=== PATIENT | female | born 1995 | race Caucasian/White ===

== ENCOUNTER 2018-11-03 15:26 | Emergency (ER) | payer MEDICAID, SELFPAY ==
[2018-11-03 15:27] VITALS: BP 126/79; PULSE 96; RESP 16; TEMP 36.6; O2SAT 98; BMI 35.6
--- NOTE | 2018-11-03 15:37 | NURSING ---
NO OLD EKGS
--- NOTE | 2018-11-03 15:42 | EKG12_ITS ---
Test Reason : CP Blood Pressure : / mmHG Vent. Rate : 085 BPM Atrial Rate : 085 BPM P-R Int : 110 ms QRS Dur : 078 ms QT Int : 360 ms P-R-T Axes : 079 076 068 degrees QTc Int : 428 ms Sinus rhythm with short NM Otherwise normal ECG Confirmed by BARRIE FARMER, FILIBERTO ([id number]), food editor CLAUDIA BUTLER ([id number] on 11/06/2018 12:49:59 PM Referred By: TIARA Confirmed By:FILIBERTO SOOD MD
--- NOTE | 2018-11-03 15:47 | ED.DCSUM_ITS ---
- ER Visit Summary Date of Service: 11/03/18 Chief Complaint: Chest pain and back pain History of Present Illness: The patient is a 23 F who presents with chief complaint of back pain since yesterday and chest pain today. Patient states she was having mid and lower back pain yesterday. She had 2 episodes of dizziness that resolved with rest. Patient thought she might have low blood sugar and ate a cookie. She then slipped on the floor at work and fell, now with worsening back pain. This morning she noted chest pain in the mid chest. No radiation. Pain is worse with breathing. No fever, cough, congestion, abdominal pain, nausea vomiting, diarrhea, urinary symptoms. No weakness in the arms or legs. She denies any medical problems. Is not on any medications. Occasional alcohol use. No tobacco or drugs. No history of IV drug use. Physical Examination: Vital signs: afebrile, hemodynamically stable, no hypoxia on room air General: well nourished, well developed, in no distress, ambulates without difficulty Skin: warm, dry, facial rosacea, no pallor HEENT: normocephalic and atraumatic; PERRL, EOMI, moist mucous membranes Cardiovascular: regular rate and rhythm without murmurs, no peripheral edema, 2+ pulses all distal extremities Respiratory: No increased work of breathing, lungs are clear to auscultation bilaterally, no rales, rhonchi or wheezing Abdominal: Abdomen is soft, nontender with normoactive bowel sounds, no guarding or rebound, no masses MSK: Moves all extremities, no deformities, normal strength, no c-spine tenderness, midline tenderness to the thoracic and lumbar spine diffusely without any deformities, step-offs, erythema, rash, fluctuance. Full range of motion of the back. Neuro: Awake and alert, oriented ?4. No facial droop, sensation and motor function intact and symmetric Test Results: Abnormal Lab Results 11/03/18 11/03/18 11/03/18 16:00 16:00 16:00 WBC 7.3 RBC 5.45 H Hgb 14.7 Hct 44.1 MCV 80.9 L MCH 27.0 MCHC 33.3 RDW 13.3 RDW Differential 38.9 Plt Count 298 MPV 9.7 Immature Gran % (Auto) 0.300 Neut % (Auto) 58.6 Lymph % (Auto) 26.3 Milam % (Auto) 9.4 Eos % (Auto) 5.0 Baso % (Auto) 0.4 Absolute Neuts (auto) 4.3 Absolute Lymphs (auto) 1.93 Total Counted Not Reportable D-Dimer Quant (PE/DVT) 0.34 Sodium 141 Potassium 4.0 Chloride 106 Carbon Dioxide 27.0 Anion Gap 8 BUN 8 Creatinine 0.71 Estim Creat Clear Calc 116.35 Est GFR (MDRD) Af Amer 131 Est GFR (MDRD) Non-Af 109 BUN/Creatinine Ratio 11.2 Glucose 87 Calcium 8.5 Magnesium 1.8 Total Bilirubin 0.40 Direct Bilirubin 0.11 AST 5 L ALT 26 Alkaline Phosphatase 135 H Troponin I < 0.015 Total Protein 7.5 Albumin 3.6 Globulin 3.9 Lipase 181 TSH 1.01 Urine Color Urine Clarity Urine pH Ur Specific [place] Urine Protein Urine Glucose (UA) Urine Ketones Urine Occult Blood Urine Nitrite Urine Bilirubin Urine Urobilinogen Ur Leukocyte Esterase Urine RBC Urine WBC Ur Squamous Epith Cells Urine Bacteria Urine Mucus Urine Test 11/03/18 11/03/18 16:05 16:05 WBC RBC Hgb Hct MCV MCH MCHC RDW RDW Differential Plt Count MPV Immature Gran % (Auto) Neut % (Auto) Lymph % (Auto) Mil[place] % (Auto) Eos % (Auto) Baso % (Auto) Absolute Neuts (auto) Absolute Lymphs (auto) Total Counted D-Dimer Quant (PE/DVT) Sodium Potassium Chloride Carbon Dioxide Anion Gap BUN Creatinine Estim Creat Clear Calc Est GFR (MDRD) Af Amer Est GFR (MDRD) Non-Af BUN/Creatinine Ratio Glucose Calcium Magnesium Total Bilirubin Direct Bilirubin AST ALT Alkaline Phosphatase Troponin I Total Protein Albumin Globulin Lipase TSH Urine Color Yellow Urine Clarity Sl. Cloudy Urine pH 6.0 Ur Specific [place] 1.015 Urine Protein Negative Urine Glucose (UA) Normal Urine Ketones Negative Urine Occult Blood Negative Urine Nitrite Negative Urine Bilirubin Negative Urine Urobilinogen Normal Ur Leukocyte Esterase Negative Urine RBC 0 SEEN Urine WBC 0 SEEN Ur Squamous Epith Cells 5-10 SEEN Urine Bacteria 0 SEEN Urine Mucus 0 SEEN Urine Test Negative Clinical Impression(s) from Imaging Studies Chest X-Ray 11/03/18 16:15 IMPRESSION: Normal x-ray examination of the chest. Electronically Signed: Emely Mills MD at 17:09 EST Tel , Service support , Lumbar Spine X-Ray 11/03/18 16:15 IMPRESSION: Minimal degenerative change. There is straightening of the physiologic lordosis which can be associated with muscle spasm or pain. Electronically Signed: Emely Mills MD at 17:09 EST Tel , Service support , Thoracic Spine X-Ray 11/03/18 16:15 IMPRESSION: Normal x-ray examination of the thoracic spine. Electronically Signed: Elaine Ventura, at 16:51 EST Tel , Service support , Medications Given Discontinued Medications Sodium Chloride () 1,000 mls @ 1,000 mls/hr IV .Q1H ONE Stop: 11/03/18 16:41 Last Admin: 11/03/18 16:07 Dose: 1,000 mls/hr Ketorolac Tromethamine (Toradol) 15 mg IV X1 ONE Stop: 11/03/18 15:44 Last Admin: 11/03/18 16:07 Dose: 15 mg Emergency Department Course and Treatment: Patient presents for evaluation of diffuse back pain with worsening after she slipped and fell yesterday. She is also having chest pain that is pleuritic in nature. She had 2 episodes of dizziness yesterday but they were unrelated to the fall. Due to patient's constellation of symptoms, workup was performed. EKG showed a sinus rhythm with no ischemia or ectopy. Troponin negative. D-dimer was performed given the back and chest pain with worsening with breathing. D-dimer was within normal limits. Patient had no electrolyte abnormalities, no leukocytosis or anemia, urine was negative for infection, TSH was within normal range. negative. Patient received IV fluids and Toradol with improvement of her pain. X-rays of the chest, lumbar spine and thoracic spine were remarkable only for straightening of the lumbar lordosis, which was interpreted as possibly due to muscle spasm. Patient did state her pain worsened after the fall. She has no focal neuro deficits, no saddle anesthesia, no bowel or bladder complaints, and there is no red flag symptoms concerning for cauda equina, epidural abscess or hematoma. Patient is well-appearing. She was given a prescription for naproxen and Flexeril for muscle spasm. She is to follow-up with her primary care provider if her symptoms continue and return to emergency department if any worsening or changes. Patient agreed with this plan was discharged home. Treatment Plan: [] Disposition: [] Impression: nonspecific back and chest pain This note was generated with [employer] dictation software. It may contain incorrect words, spelling, and punctuation that were not noted in review of the chart prior to signing ED Disposition - Plan for ED Patient: Disposition: Home or Assisted Living Chief Complaint: Chest Pain Instructions: ED Spasm Back No Trauma, ED Sprain Strain Lumbar, ED Chest Pain Atypical Unkn Cause Prescriptions: RX: Naproxen [Naprosyn] 500 mg PO BID PRN #20 tab Cyclobenzaprine [Flexeril] 5 mg PO TID PRN #15 tab PRN Reason: Muscle Spasm Referrals: Shikha Brown MD [Primary Care Provider] -
[2018-11-03 16:05] VITALS: O2SAT 99
[2018-11-03] MEDS: 0.9% Normal Saline 1,000 ML 1000 ML IV (16:07)
[2018-11-03] MEDS: Ketorolac 15 MG/ML Vial IV (16:07)
--- NOTE | 2018-11-03 16:15 | RAD_ITS ---
STUDY: X-RAY CHEST REASON FOR EXAM: Female, 23 years old. Status post fall TECHNIQUE: PA and lateral views of the chest. COMPARISON: November 28, 2017 chest x-ray FINDINGS: The lungs are clear and expanded. There is no demonstrated pleural abnormality. Normal size heart. Normal mediastinum and cornel. Normal visualized pulmonary arteries. Normal visualized aortic arch and descending thoracic aorta. Normal visualized thoracic spine. Normal visualized ribs, clavicles, and shoulders. There is no demonstrated abnormality of the visualized soft tissue structures of the upper abdomen. RAD/Chest PA and Lateral IMPRESSION: Normal x-ray examination of the chest. Electronically Signed: Emely Mills MD at 17:09 EST Tel , Service support ,
--- NOTE | 2018-11-03 16:15 | RAD_ITS ---
STUDY: X-RAY - THORACIC SPINE REASON FOR EXAM: Female, 23 years old. TECHNIQUE: view(s) of the thoracic spine were obtained. COMPARISON: None. FINDINGS: Normal kyphosis of the thoracic spine. There is no substantial scoliosis. Normal thoracic vertebrae and endplates. Normal disc space heights. The soft tissue structures are unremarkable. RAD/Thoracic Spine 3 Views IMPRESSION: Normal x-ray examination of the thoracic spine. Electronically Signed: Elaine Ventura, at 16:51 EST Tel , Service support ,
--- NOTE | 2018-11-03 16:15 | RAD_ITS ---
STUDY: X-RAY - LUMBAR SPINE REASON FOR EXAM: Female, 23 years old. Status post fall TECHNIQUE: 3 view(s) of the lumbar spine were obtained. COMPARISON: None FINDINGS: There is straightening of the normal lumbar lordosis. There is no substantial scoliosis. There is a normal alignment of the vertebrae. Normal vertebral bodies and endplates. There is mild narrowing at L5-S1. The soft tissue structures are unremarkable. RAD/Lumbar Spine 2 or 3 Views IMPRESSION: Minimal degenerative change. There is straightening of the physiologic lordosis which can be associated with muscle spasm or pain. Electronically Signed: Emely Mills MD at 17:09 EST Tel , Service support ,
[2018-11-03 16:16] LABS: Bacteria 0 SEEN /hpf (None Seen); Mucous, Urine 0 SEEN /hpf (<or=2+); Red Blood Cells-Urine 0 SEEN /hpf (0-5); White Blood Cells 0 SEEN /hpf (0-5)
[2018-11-03 16:23] LABS: Color, Urine Yellow (Yellow); Glucose, Dipstick Normal (Normal); Ketone-Dipstick Negative (Negative); Leukocyte Esterase-Dipstick Negative /ul (Negative); Nitrite-Dipstick Negative (Negative); Occult Blood-Urine Negative /ul (Negative); Protein-Dipstick Negative (Negative); Specific Gravity, Urine 1.015 (1.002-1.030); Urine Bilirubin Dipstick Negative (Negative); Urine Clarity Sl. Cloudy (Clear); Urine Urobilinogen Normal (Normal)
[2018-11-03 16:28] LABS: Internal QC Validated? YES +Cl - CLEAR BKGD; Pregnancy, Urine Negative Negative
[2018-11-03 16:34] LABS: Absolute Lymphocyte Count 1.93 X10^3/ul (0.83-4.51); Absolute Neutrophil Count 4.3 X10^3/uL (2.0-7.7); Basophil# 0.03 X10^3/uL; Basophil% 0.4 % (0-1); Eosinophil# 0.37 X10^3/uL; Hematocrit 44.1 % (37-47); Hemoglobin 14.7 g/dl (12.0-15.0); Lymphocyte # 1.93 X10^3/ul (4.0); Lymphocyte % 26.3 % (19-41); Mean Corp Hgb Conc 33.3 g/gl (32-36); Mean Corpuscular Volume 80.9 fL (81-99); Mean Platelet Vol. 9.7 fl (6.2-12.0); Monocyte# 0.69 X10^3/uL; Monocyte% 9.4 % (0-10); Neutrophil # 4.29 X10^3/uL (2.7-7.7); Neutrophil % 58.6 % (47-70); Platelet Count 298 K/mm3 (150-450); RBC Distribution Width CV 13.3 % (11.6-14.6); RBC Distribution Width SD 38.9 fl (35.1-43.9); Red Blood Count 5.45 M/mm3 (4.2-5.4); White Blood Count 7.3 K/mm3 (4.4-11.0)
[2018-11-03 16:37] LABS: POSITIVE COUNT NO; POSITIVE DIFFERENTIAL NO; POSITIVE MORPHOLOGY NO
[2018-11-03 16:37] LABS: Squamous Epithelial Cells - UA 5-10 SEEN /hpf (5-10)
[2018-11-03 16:41] LABS: AST(SGOT) 5 U/L (15-37); Alanine Aminotransfer ALT/SGPT 26 U/L (13-56); Albumin, Serum 3.6 g/dL (3.2-5.0); Alkaline Phosphatase 135 U/L (45-117); Anion Gap 8 (5-15); BUN 8 mg/dL (7-18); BUN/Creat Ratio 11.2 RATIO (10-20); Bilirubin, Direct 0.11 mg/dL (0.00-0.30); Calcium,Total 8.5 mg/dL (8.5-10.1); Chloride 106 mmol/L (98-107); Creatinine, Serum 0.71 mg/dL (0.55-1.02); EST Glomerular Filtration Rate 109 mL/min (>60); Est Glom Filt Rate - Afr Amer 131 mL/min (>60); Estimated Creatinine Clearance 116.35 ml/min; Globulin 3.9 g/dL (2.2-4.2); Glucose 87 mg/dL (74-106); Lipase 181 U/L (73-393); Magnesium 1.8 mg/dL (1.6-2.6); Protein, Total 7.5 g/dL (6.4-8.2); Sodium Level 141 mmol/L (136-145); Thyroid Stim Hormone (TSH) 1.01 uIU/mL (0.358-3.74)
[2018-11-03 16:47] LABS: D-Dimer Quantitative (DVT/PE) 0.34 FEU/ug/m (0.27-0.49)
[2018-11-03 17:26] VITALS: BP 106/58; PULSE 73; RESP 12; O2SAT 98
--- NOTE | 2018-11-03 17:44 | ED.DEP ---
ED Disposition - Plan for ED Patient: Disposition: Home or Assisted Living Chief Complaint: Chest Pain Instructions: ED Spasm Back No Trauma, ED Sprain Strain Lumbar, ED Chest Pain Atypical Unkn Cause Prescriptions: Naproxen [Naprosyn] 500 mg PO BID PRN #20 tab Cyclobenzaprine [Flexeril] 5 mg PO TID PRN #15 tab PRN Reason: Muscle Spasm Referrals: Shikha Brown MD [Primary Care Provider] -
[2018-11-03 18:03] VITALS: PULSE 76; RESP 14; O2SAT 99
== END 2018-11-03 18:03 | disposition home or self-care (01) ==
PROVIDERS: Emergency Provider Emergency Medicine; Family Provider Internal Medicine; PCP Internal Medicine
DX: R07.9 Chest pain, unspecified (principal); M54.9 Dorsalgia, unspecified
CPT/HCPCS: 71046; 72070; 72072; 72100; 80048; 80076; 81001; 81025; 83690; 83735; 84443; 84484; 85025; 85379; 93005; 96361; 96374; 99284; J7030; A4216

== ENCOUNTER 2020-04-07 15:50 | Emergency (ER) | payer MEDICAID, SELFPAY ==
[2020-04-07 15:52] VITALS: BP 133/76; PULSE 73; RESP 18; TEMP 36.6; O2SAT 98; BMI 32.3
--- NOTE | 2020-04-07 16:52 | ED.VISSUMM ---
- ER Visit Summary Date of Service: 04/07/20 Chief Complaint: Abdominal pain and rectal bleeding History of Present Illness: The patient is a 25 F who presents with abdominal pain that has been constant for the past month. Patient states that her abdominal pain is been waxing and waning over the past month. Patient describes it as aching but sharp at times. Patient states her pain is over the epigastric area as well as over the suprapubic area. Patient admits to nausea but denies any vomiting. Patient also noted some blood in her stools today. Patient states it was red and orange blood. Patient denies any pain with her bowel movements. Patient denies any urinary complaints. Physical Examination: Vital signs are stable. Patient is afebrile. Patient is in no acute distress. Oral mucosa is pink and moist. Neck is supple. Trachea is midline. There is no JVD. Heart was regular rate and rhythm. Lungs are clear and equal bilaterally. Abdomen is soft. Bowel sounds are normal. There is some mild suprapubic and right lower tenderness. There is no rebound or guarding noted. Rovsing sign was negative. Cranial nerves II through XII are intact. There are no focal motor or sensory deficits noted. Remedies are intact. There is no calf tenderness or edema. Test Results: CBC and comprehensive metabolic profile were within normal limits. Urinalysis was normal. Serum hCG was negative. Emergency Department Course and Treatment: Patient was advised of her findings. Patient was instructed to continue to monitor her stools for further bleeding. Patient was instructed on signs and symptoms which should prompt return to the emergency department. Patient was instructed to follow-up with her primary care physician in 5 to 7 days. Patient was advised that she may be referred for endoscopy to a western philosophy professor or surgeon. Patient understood and was agreeable with the plan. All questions were answered. Disposition: Discharge home Impression: Rectal bleeding This note was generated with [employer] dictation software. It may contain incorrect words, spelling, and punctuation that were not noted in review of the chart prior to signing ED Disposition - Plan for ED Patient: Disposition: Home or Assisted Living Diagnosis: Rectal bleeding Instructions: ED Hematochezia Stable Referrals: Shikha Brown MD [STAFF PHYSICIAN] - 3-5 Days
[2020-04-07] MEDS: Ondansetron 4 MG/2 ML Vial IV (17:01)
[2020-04-07] MEDS: 0.9% Normal Saline 1,000 ML 1000 ML IV (17:01)
[2020-04-07 17:13] LABS: Bacteria 0 SEEN /hpf (None Seen); Mucous, Urine 0 SEEN /hpf (<or=2+); Red Blood Cells-Urine 0 SEEN /hpf (0-5); White Blood Cells 0 SEEN /hpf (0-5)
[2020-04-07 17:20] LABS: Absolute Lymphocyte Count 2.03 X10^3/uL (0.83-4.51); Absolute Neutrophil Count 4.2 X10^3/uL (2.0-7.7); Basophil# 0.06 X10^3/uL; Basophil% 0.8 % (0-1); Eosinophil# 0.42 X10^3/uL; Eosinophils% 5.7 % (0-5); Hematocrit 43.8 % (37-47); Hemoglobin 14.2 g/dL (12.0-15.0); Lymphocyte # 2.03 X10^3/ul (4.0); Lymphocyte % 27.7 % (19-41); Mean Corp Hgb Conc 32.4 g/dL (32-36); Mean Corpuscular Hgb 27.8 pg (27.0-32.0); Mean Corpuscular Volume 85.7 fL (81-99); Mean Platelet Vol. 10.8 fl (6.2-12.0); Monocyte# 0.61 X10^3/uL; Monocyte% 8.3 % (0-10); NRBC Flagged by Analyzer 0 % (0-5); Neutrophil # 4.18 X10^3/uL (2.7-7.7); Platelet Count 295 K/mm3 (150-450); RBC Distribution Width CV 13.2 % (11.6-14.6); RBC Distribution Width SD 40.6 fl (35.1-43.9); Red Blood Count 5.11 M/mm3 (4.2-5.4); White Blood Count 7.3 K/mm3 (4.4-11.0)
[2020-04-07 17:33] LABS: ALB/GLOB Ratio 0.9 RATIO (0.9-2.4); AST(SGOT) 7 U/L (15-37); Alanine Aminotransfer ALT/SGPT 27 U/L (13-56); Albumin, Serum 3.4 g/dL (3.2-5.0); Alkaline Phosphatase 110 U/L (45-117); Anion Gap 7 (5-15); BUN 9 mg/dL (7-18); BUN/Creat Ratio 13.9 RATIO (10-20); Calcium,Total 8.9 mg/dL (8.5-10.1); Chloride 109 mmol/L (98-107); Creatinine, Serum 0.65 mg/dL (0.55-1.02); EST Glomerular Filtration Rate 120 mL/min (>60); Est Glom Filt Rate - Afr Amer 145 mL/min (>60); Estimated Creatinine Clearance 124.94 ml/min; Globulin 3.6 g/dL (2.2-4.2); Glucose 90 mg/dL (74-106); Lipase 108 U/L (73-393); Potassium 3.9 mmol/L (3.5-5.1); Sodium Level 140 mmol/L (136-145)
[2020-04-07 17:38] LABS: Color, Urine Yellow (Yellow); Glucose, Dipstick Normal (Normal); Ketone-Dipstick Negative (Negative); Leukocyte Esterase-Dipstick Negative /ul (Negative); Nitrite-Dipstick Negative (Negative); Occult Blood-Urine Negative /ul (Negative); Protein-Dipstick Negative (Negative); Specific Gravity, Urine 1.015 (1.002-1.030); Urine Bilirubin Dipstick Negative (Negative); Urine Clarity Sl. Cloudy (Clear); Urine Urobilinogen Normal (Normal)
[2020-04-07 17:47] LABS: Amorphous Sediment 1+ PHOS; Squamous Epithelial Cells - UA 0-5 SEEN /hpf (5-10)
[2020-04-07 18:25] LABS: Internal QC Validated? YES +Cl - CLEAR BKGD; Pregnancy, Serum, hCG Quali. NEGATIVE Negative
[2020-04-07 19:22] VITALS: PULSE 57; RESP 18; O2SAT 100
== END 2020-04-07 19:25 | disposition home or self-care (01) ==
PROVIDERS: Emergency Provider Emergency Medicine; PCP Internal Medicine
DX: K62.5 Hemorrhage of anus and rectum (principal)
CPT/HCPCS: 80053; 81001; 83690; 84703; 85025; 96361; 96374; 99283; J7030; J2405

== ENCOUNTER 2020-05-14 07:00 | Emergency (ER) | payer MEDICAID, SELFPAY ==
[2020-05-14 07:01] VITALS: BP 117/71; PULSE 78; RESP 16; TEMP 39.9; O2SAT 98; BMI 33.8
[2020-05-14 07:28] VITALS: TEMP 36.8
--- NOTE | 2020-05-14 07:29 | ED.DCSUM_ITS ---
History of Present Illness Chief Complaint: Ear Problem Informant: Patient Onset: Yesterday Context: Gradual Onset Timing: Intermittent Narrative: Patient is a 25-year-old female with history of anxiety presenting with ringing and feeling like there is a sound of water in her right ear. She states intermittently she gets a sharp pain in her right ear. She states that is mild. She currently denies any ear pain. Patient states is now more irritating and giving her headache. She denies any difficulty swallowing nasal congestion. She took Tylenol last night. Her symptoms started yesterday. Patient is currently on her. She is not concerned for . She denies any other complaints at this time. She never had anything like this before. She denies any change in her hearing. Past Medical History - Allergies and Home Meds Allergies/Adverse Reactions: Allergies adhesive tape Allergy (Verified 05/14/20 07:07) Rash tomato Allergy (Verified 04/07/20 15:55) Swelling venom-honey bee [bee venom (honey bee)] Allergy (Verified 04/07/20 15:55) Hives Primary Care Physician: Alexandra Stoddard MD [Primary Care Provider] - Past Medical History: - - anxiety Surgical History: noncontributory Smoking Status: Former smoker Review of Systems General: Denies: Chills, Fever, Sweats Eyes: Denies: Visual changes - bilaterally, Diplopia ENT: Reports: Right ear pain. Denies: Rhinorrhea, Sore throat Cardiovascular: Denies: Chest pain, Palpitations Respiratory: Denies: Dyspnea, Cough, Dyspnea on exertion Gastrointestinal: Denies: Abdominal pain, Nausea, Vomiting, Diarrhea, Melena, Hematochezia Genitourinary: Denies: Dysuria, Hematuria, Frequency Musculoskeletal: Denies: Back pain, Extremity Pain Skin: Denies: Rash, Wounds Neurological: Reports: Headache. Denies: Weakness, Numbness Physical Exam Vital Signs/Narrative: Vital Signs Temp Pulse Resp BP Pulse Ox 05/14/20 07:28 98.2 F 05/14/20 07:01 103.9 F H 78 16 117/71 98 Inital Vital Signs reviewed: Yes General: Well nourished, Well developed, No Acute Distress Head: Normocephalic, Atraumatic Eyes: Perrl, EOMI ENT: Moist mucous membranes, No rhinorrhea, TM's clear, - - Left TM is normal. Right TM does not of any erythema or significant air-fluid level but there is some retraction of the membrane. Mastoid tenderness. External ear canals are normal.. Negative for: Nasal congestion, Sinus tenderness Neck: Supple, Nontender, No lymphadenopathy, - - No nuchal rigidity, normal range of motion Cardiovascular: Regular rate, Regular rhythm, No murmurs Respiratory: No distress, CTA bilaterally, Chest nontender Abdomen: Soft, Nontender, Nondistended, Normal bowel sounds Back: Nontender, Normal Inspection Extremities: Nontender, No edema Skin: Normal color, No rash Neurological: Alert, Oriented x3, Cranial nerves II-XII grossly intact, Normal Strength, Normal Sensation Psychological: Normal affect, Normal Mood Diagnostic/Tx/Re-eval - Medical Decision Making Patient is evaluated for intermittent pain as well as ringing/fluid sensation in her right ear. Initial triage note had fever documented of 103 however patient not have a corresponding tachycardia and did not feel febrile to me. She also did not feel like she personally had a fever. Repeat temperature is normal. Patient did not have any antipyretics prior to arrival. I suspect this temperature was incorrect. Likely patient has some eustachian tube dysfunction. She will be started on Flonase as well as Zyrtec. She be given a [id number] course of antibiotics if she has worsening ear pain or does develop fever. Patient is counseled on signs and symptoms requiring return to the emergency room. Patient verbalizes agreement and understand this plan. Patient discharged home in stable and improved condition. ED Disposition - Plan for ED Patient: Disposition: Home or Assisted Living Diagnosis: Eustachian tube dysfunction Prescriptions: Amox/Clavulanate Tablet [Augmentin Tablet] 875 mg PO Q12H #20 tab Transmission Status: Pending to [id number] Fluticasone 0.05% [Flonase Nasal [place]] 1 spray NASAL BID 14 Days #1 bottle Transmission Status: Pending to [id number] Cetirizine HCl [Zyrtec] 10 mg PO DAILY #14 cap Transmission Status: Pending to [id number] Referrals: Alexandra Stoddard MD [Primary Care Provider] - Robbin Francisco MD [STAFF PHYSICIAN] - Additional Instructions: I suspect you have increased pressure behind her right ear which is causing her discomfort. The Zyrtec and Flonase should help with this. If you have more pain or develop fever please take the antibiotics. If you do not develop the symptoms you do not need to take the antibiotics. Follow-up with ear nose and throat doctor if you do not have any improvement of your symptoms.
[2020-05-14] MEDS: Acetaminophen 325 MG Tablet 650 MG PO (07:40)
== END 2020-05-14 07:49 | disposition home or self-care (01) ==
LOC: ED 07:46
PROVIDERS: Emergency Provider Emergency Medicine; PCP Internal Medicine
DX: H69.81 Other specified disorders of Eustachian tube, right ear (principal); F41.9 Anxiety disorder, unspecified; Z87.891 Personal history of nicotine dependence
CPT/HCPCS: 99283

== ENCOUNTER 2020-09-09 21:23 | Emergency (ER) | payer OTHER, MEDICAID, SELFPAY ==
[2020-09-09 21:23] VITALS: BP 122/87; PULSE 87; RESP 16; TEMP 36.3; O2SAT 99
[2020-09-09 21:24] VITALS: BP 122/87; PULSE 87; RESP 16; TEMP 36.3; O2SAT 100; BMI 36.2
--- NOTE | 2020-09-09 22:17 | US_ITS ---
STUDY: FIRST TRIMESTER OBSTETRICAL ULTRASOUND (TWINS) REASON FOR EXAM: Female, 25 years old. LMP: 05/03/2021 SLIGHT PAIN AND BROWNISH CLEAR PARTICLES SEEN WHEN WIPING TECHNIQUE: Transvaginal TECHNICAL QUALITY: Adequate. COMPARISON: None. FINDINGS: There are two demonstrated intrauterine gestational sacs. The amniotic membrane cannot be visualized. The estimated gestation age (EGA) by LMP is 6 weeks, 3 days. The estimated date of delivery (YUDY) by LMP is 05/03/2020. BABY A The mean sac diameter (MSD) measure 4 mm, indicating an estimated gestational age (EGA) of 5 weeks, 0 days. There is no demonstrated yolk sac. The yolk sac measures . There is no demonstrated embryo ( pole). BABY B The mean sac diameter (MSD) measure 4.2 mm, indicating an estimated gestational age (EGA) of 5 weeks, 1 days. There is no demonstrated yolk sac. There is no demonstrated embryo ( pole). MATERNAL ANATOMY The uterus measures 6.6 x 4.7 x 4.2 cm. There is no demonstrated uterine fibroid. The cervix is closed. The right ovary measures 3.3 x 2.3 x 1.5 cm. There is no right ovarian cyst. There is no visualized right adnexal mass or complex lesion. The left ovary not visualized. There is no fluid in the cul de sac. US/Transvaginal w/Preg US IMPRESSION: Early intrauterine twin . Estimated age 5 weeks 0 days baby A, 5 weeks 0 days baby B. The estimated delivery date 05/12/2021 or 05/13/2021. The pole is not visualized yet. Recommend close interval follow-up study. Recommend correlation with beta hCG. Electronically Signed: Emely Mills MD at 23:56 EST Tel , Service support ,
--- NOTE | 2020-09-09 22:38 | ED.DCSUM_ITS ---
History of Present Illness Chief Complaint: Informant: Patient Onset: Today Context: Gradual Onset Timing: Continuous Current Severity: Moderate Maximum Severity: Moderate Narrative: Patient is G2, P0 at approximately 6 weeks gestation that presents to the emergency department with vaginal bleeding. Patient has a positive home test. She thinks that she is around 6-1/2 weeks. Today, she began to have some cramping and some scant blood when she wiped. She presented here for further evaluation. She denies any significant pain. She denies any significant bleeding. She denies urinary symptoms. She is unsure of her blood type. Prior similar symptoms: No Recent Illness/Hospitalization: No Past Medical History - Allergies and Home Meds Allergies/Adverse Reactions: Allergies adhesive tape Allergy (Verified 05/14/20 07:07) Rash tomato Allergy (Verified 04/07/20 15:55) Swelling venom-honey bee [bee venom (honey bee)] Allergy (Verified 04/07/20 15:55) Hives Primary Care Physician: Alexandra Stoddard MD [Primary Care Provider] - Prior records reviewed: Yes Past Medical History: None Surgical History: noncontributory Smoking Status: Former smoker Review of Systems General: Denies: Chills, Fever, Sweats Eyes: Denies: Visual changes - bilaterally, Diplopia ENT: Denies: Rhinorrhea, Sore throat Cardiovascular: Denies: Chest pain, Palpitations Respiratory: Denies: Dyspnea, Cough, Dyspnea on exertion Gastrointestinal: Denies: Abdominal pain, Nausea, Vomiting, Diarrhea, Melena, Hematochezia Genitourinary: Denies: Dysuria, Hematuria, Frequency Musculoskeletal: Denies: Back pain, Extremity Pain Skin: Denies: Rash, Wounds Neurological: Denies: Headache, Weakness, Numbness Physical Exam Vital Signs/Narrative: Vital Signs Temp Pulse Resp BP Pulse Ox 09/09/20 21:24 97.4 F L 87 16 122/87 H 100 09/09/20 21:23 97.4 F L 87 16 122/87 H 99 Inital Vital Signs reviewed: Yes General: Well nourished, Well developed, No Acute Distress Head: Normocephalic, Atraumatic Eyes: Perrl, EOMI ENT: Moist mucous membranes, No rhinorrhea Neck: Supple, Nontender Cardiovascular: Regular rate, Regular rhythm, No murmurs Respiratory: No distress, CTA bilaterally, Chest nontender Abdomen: Soft, Nontender, Nondistended, Normal bowel sounds Back: Nontender, Normal Inspection Extremities: Nontender, No edema Skin: Normal color, No rash Neurological: Alert, Oriented x3, Cranial nerves II-XII grossly intact, Normal Strength, Normal Sensation Psychological: Normal affect, Normal Mood Diagnostic/Tx/Re-eval Clinical Impression(s) from Imaging Studies Obstetrics Ultrasound 09/09/20 22:17 IMPRESSION: Early intrauterine twin . Estimated age 5 weeks 0 days baby A, 5 weeks 0 days baby B. The estimated delivery date 05/12/2021 or 05/13/2021. The pole is not visualized yet. Recommend close interval follow-up study. Recommend correlation with beta hCG. Electronically Signed: Emely Mills MD at 23:56 EST Tel , Service support , - Medical Decision Making Patient presents with trace vaginal bleeding. She is early in . She did have some abdominal cramping. Metabolic work-up was pursued. Urine does not show infection. Patient's blood type is positive. She underwent ultrasound to rule out ectopic. The patient has twin gestation that is intrauterine. There is no evidence of free fluid or ectopic. Patient was counseled on these results. She has follow-up in 5 days with [facility]. She will continue her prenatals. She will be discharged home. Impression 1. Normal intrauterine twin gestation ED Disposition - Plan for ED Patient: Instructions: ED CARE Referrals: Alexandra Stoddard MD [Primary Care Provider] -
[2020-09-09 22:51] LABS: Bacteria 0 SEEN /hpf (None Seen); Mucous, Urine 0 SEEN /hpf (<or=2+); Red Blood Cells-Urine 0 SEEN /hpf (0-5); Squamous Epithelial Cells - UA 0 SEEN /hpf (5-10); White Blood Cells 0 SEEN /hpf (0-5)
[2020-09-09 22:53] LABS: Color, Urine Yellow (Yellow); Glucose, Dipstick Normal (Normal); Ketone-Dipstick Negative (Negative); Leukocyte Esterase-Dipstick Negative /ul (Negative); Nitrite-Dipstick Negative (Negative); Occult Blood-Urine Negative /ul (Negative); Protein-Dipstick Negative (Negative); Urine Bilirubin Dipstick Negative (Negative); Urine Clarity Sl. Cloudy (Clear); Urine Urobilinogen Normal (Normal); Urine pH 6.5 (5.0 - 8.0)
[2020-09-09 22:59] LABS: Amorphous Sediment 1+ URATE; Transitional Epithelial - Ur 0-5 SEEN /hpf (0-5)
[2020-09-09 23:30] VITALS: RESP 16
[2020-09-09 23:35] LABS: hCG Titer Quant., Serum 2446 mIU/mL (1-3)
[2020-09-10 00:17] VITALS: BP 110/68; PULSE 68; RESP 16; O2SAT 98
== END 2020-09-10 00:17 | disposition home or self-care (01) ==
LOC: ED 22:40
PROVIDERS: Emergency Provider Emergency Medicine; PCP Internal Medicine
DX: O20.9 Hemorrhage in early pregnancy, unspecified (principal); Z3A.01 Less than 8 weeks gestation of pregnancy; Z87.891 Personal history of nicotine dependence
CPT/HCPCS: 76817; 81001; 84702; 86900; 86901; 99283; A4216

== ENCOUNTER 2020-09-25 | Emergency (ER) | payer OTHER, MEDICAID, SELFPAY ==
[2020-09-25 00:01] VITALS: BP 129/87; PULSE 103; RESP 16; TEMP 36.4; O2SAT 99; BMI 35.9
[2020-09-25 00:03] VITALS: BP 129/87; PULSE 103; RESP 16; TEMP 36.4; O2SAT 99
--- NOTE | 2020-09-25 00:48 | US_ITS ---
We are attempting to reach an attending provider to discuss findings. An addendum with communication details will be sent when the communication is complete. STUDY: FIRST TRIMESTER OBSTETRICAL ULTRASOUND REASON FOR EXAM: Female, 25 years old bleeding w/early preg -- -- prev scan showed early twin gest LMP: 07/27/2020. TECHNIQUE: Transvaginal TECHNICAL QUALITY: Adequate. PRIOR ULTRASOUND: 09/10/2020. FINDINGS: There is no demonstrated intrauterine gestational sac. There is no demonstrated yolk sac. There is no demonstrated embryo ( pole). The estimated gestation age (EGA) by LMP is 8 weeks, 4 days. The estimated date of delivery (YUDY) by LMP is 05/03/2021. The estimated gestation age (EGA) by US: No gestational sac seen. The uterus measures 6.7 x 5.8 x 4.0 cm. There is no demonstrated uterine fibroid. The cervix is closed. The endometrium is distended and slightly heterogeneous measuring 20 mm. The right ovary measures 2.3 x 3.0 x 1.8 cm. There is no right ovarian cyst. There is no visualized right adnexal mass or complex lesion. The left ovary is not visualized. There is no fluid in the cul de sac. US/Transvaginal w/Preg US IMPRESSION: Previously demonstrated intrauterine gestational sac not visualized on current study with heterogeneous endometrium findings most likely consistent with in progress or missed . Other etiologies such as ectopic cannot be entirely excluded in the appropriate clinical context. Correlation with serial hCG measurements recommended along with short interval ultrasound recommended if clinically indicated. Electronically Signed: eRgina Adames MD at 2:11 EST , Service support ,
--- NOTE | 2020-09-25 00:50 | ED.DCSUM_ITS ---
History of Present Illness Chief Complaint: Vag Bleeding Informant: Patient Narrative: 25-year-old female A3 currently estimated about 7 weeks gestation presenting with vaginal bleeding I think some clots. She states she was seen in the ER a couple of weeks ago when she had vaginal spotting. She had transvaginal ultrasound which showed twin intrauterine gestation. Today she states she has had more blood. She states she seen to [employer] which both told her she would miscarry as she had in the past. She has some abdominal cramping. Denies fever, chills, nausea, vomiting. Denies urinary symptoms. Past Medical History - Allergies and Home Meds Allergies/Adverse Reactions: Allergies adhesive tape Allergy (Verified 09/25/20 00:05) Rash tomato Allergy (Verified 09/25/20 00:05) Swelling venom-honey bee [bee venom (honey bee)] Allergy (Verified 09/25/20 00:05) Hives Primary Care Physician: Alexandra Stoddard MD [Primary Care Provider] - Past Medical History: - - Denies significant medical history Surgical History: noncontributory Lives: Spouse/ Significant Other Smoking Status: Former smoker Alcohol: None Drugs: None Review of Systems General: Denies: Chills, Fever, Sweats Eyes: Denies: Visual changes - bilaterally, Diplopia ENT: Denies: Rhinorrhea, Sore throat Cardiovascular: Denies: Chest pain, Palpitations Respiratory: Denies: Dyspnea, Cough, Dyspnea on exertion Gastrointestinal: Reports: Abdominal pain - Lower abdominal/pelvic pain. D enies: Nausea, Vomiting Genitourinary: Reports: - - Vaginal bleeding and passing clots.. Denies: Dysuria, Hematuria, Frequency Musculoskeletal: Denies: Back pain, Extremity Pain Skin: Denies: Rash, Wounds Neurological: Denies: Headache, Weakness, Numbness Physical Exam Vital Signs/Narrative: Vital Signs Temp Pulse Resp BP Pulse Ox 09/25/20 00:03 97.6 F L 103 H 16 129/87 H 99 09/25/20 00:01 97.6 F L 103 H 16 129/87 H 99 General: Well nourished, No Acute Distress Head: Normocephalic, Atraumatic Eyes: Perrl, EOMI. Negative for: Pale conjunctiva ENT: Moist mucous membranes, No rhinorrhea Cardiovascular: Regular rate, Regular rhythm Respiratory: No distress, CTA bilaterally Abdomen: Soft, Nondistended, Tender - Tenderness to palpation in the lower abdomen/pelvic region. Abdomen is nonperitoneal. : - - Patient deferred pelvic exam Back: Nontender, Normal Inspection Extremities: Nontender, No edema Skin: Normal color, No rash Neurological: Alert, Oriented x3 Psychological: Normal affect, Normal Mood Diagnostic/Tx/Re-eval Clinical Impression(s) from Imaging Studies Obstetrics Ultrasound 09/25/20 00:48 IMPRESSION: Previously demonstrated intrauterine gestational sac not visualized on current study with heterogeneous endometrium findings most likely consistent with in progress or missed . Other etiologies such as ectopic cannot be entirely excluded in the appropriate clinical context. Correlation with serial hCG measurements recommended along with short interval ultrasound recommended if clinically indicated. Electronically Signed: Regina Adames MD at 2:11 EST , Service support , ADDENDUM: 09/25/20 0221 IMPRESSION: Previously demonstrated intrauterine gestational sac not visualized on current study with heterogeneous endometrium findings most likely consistent with in progress or missed . Other etiologies such as ectopic cannot be entirely excluded in the appropriate clinical context. Correlation with serial hCG measurements recommended along with short interval ultrasound recommended if clinically indicated. N.B. : The above information has been verbally conveyed by Regina Adames MD to Dr. Surya Ruelas DO, on 09/25/2020 02:14:31 (ET). Electronically Signed: Regina Adames MD at 2:11 EST , Service support , Laboratory Data 09/25/20 09/25/20 09/25/20 00:30 00:30 00:30 WBC 8.8 RBC 5.40 Hgb 14.8 Hct 45.4 MCV 84.1 MCH 27.4 MCHC 32.6 RDW Std Deviation 39.5 RDW Coeff of Judi 12.9 Plt Count 334 MPV 9.9 Immature Gran % (Auto) 0.500 Neut % (Auto) 56.4 Lymph % (Auto) 31.7 Bibb % (Auto) 6.9 Eos % (Auto) 3.9 Baso % (Auto) 0.6 Absolute Neuts (auto) 5.0 Absolute Lymphs (auto) 2.79 Nucleated RBC % 0 Sodium Potassium Chloride Carbon Dioxide Anion Gap BUN Creatinine Estim Creat Clear Calc Est GFR (MDRD) Af Amer Est GFR (MDRD) Non-Af BUN/Creatinine Ratio Glucose Calcium HCG, Quant 4361 H Urine Color Urine Clarity Urine pH Ur Specific [place] Urine Protein Urine Glucose (UA) Urine Ketones Urine Occult Blood Urine Nitrite Urine Bilirubin Urine Urobilinogen Ur Leukocyte Esterase Urine RBC Urine WBC Ur Squamous Epith Cells Urine Bacteria Urine Mucus Blood Type O POSITIVE 09/25/20 09/25/20 00:30 02:15 WBC RBC Hgb Hct MCV MCH MCHC RDW Std Deviation RDW Coeff of Judi Plt Count MPV Immature Gran % (Auto) Neut % (Auto) Lymph % (Auto) Bibb % (Auto) Eos % (Auto) Baso % (Auto) Absolute Neuts (auto) Absolute Lymphs (auto) Nucleated RBC % Sodium 141 Potassium 3.6 Chloride 110 H Carbon Dioxide 24.0 Anion Gap 7 BUN 7 Creatinine 0.72 Estim Creat Clear Calc 117.16 Est GFR (MDRD) Af Amer 128 Est GFR (MDRD) Non-Af 106 BUN/Creatinine Ratio 9.7 L Glucose 108 H Calcium 8.6 HCG, Quant Urine Color Yellow Urine Clarity Cloudy Urine pH 5.0 Ur Specific [place] 1.025 Urine Protein 30 H Urine Glucose (UA) Normal Urine Ketones 5 H Urine Occult Blood 250 H Urine Nitrite Negative Urine Bilirubin Negative Urine Urobilinogen Normal Ur Leukocyte Esterase 25 H Urine RBC 10-25 SEEN Urine WBC 0-5 SEEN Ur Squamous Epith Cells 0 SEEN Urine Bacteria 0 SEEN Urine Mucus 0 SEEN Blood Type - Medical Decision Making Patient presents with vaginal bleeding with clots. She states she has not seen any tissue passage. She has diffuse crampy abdominal pain. She is already had a transvaginal ultrasound which showed twins gestation at about 5 weeks and this was about 2 weeks ago. He followed up with 2 [employer] [employer]'s who both stated that she would likely miscarry. Patient's hCG is greater than 4000. Her repeat ultrasound shows likely miscarriage in progress and previous gestational sacs are not visualized. At this point patient was given morphine and Zofran for pain and nausea. She will be given pain and nausea medication for home. She is to follow-up with her [employer]. She was given signs and symptoms which would warrant return to the ED. Her blood type is positive so she does not need RhoGam. Otherwise her lab work is normal. Patient will be discharged home in stable condition. Impression: 1. Miscarriage ED Disposition - Plan for ED Patient: Disposition: Home or Assisted Living Instructions: Miscarriage Prescriptions: Ondansetron [Ondansetron Odt] 4 mg PO Q6H PRN PRN #14 tab.rapdis PRN Reason: Nausea Prescription Printed Oxycodone HCl/Acetaminophen [Percocet 5/325] 1 tab PO Q6H PRN PRN 3 Days #12 tab PRN Reason: Pain Prescription Printed Referrals: Alexandra Stoddard MD [Primary Care Provider] -
[2020-09-25 00:57] LABS: Absolute Lymphocyte Count 2.79 X10^3/uL (0.83-4.51); Basophil# 0.05 X10^3/uL; Basophil% 0.6 % (0-1); Eosinophil# 0.34 X10^3/uL; Eosinophils% 3.9 % (0-5); Hematocrit 45.4 % (37-47); Hemoglobin 14.8 g/dL (12.0-15.0); Lymphocyte # 2.79 X10^3/ul (4.0); Lymphocyte % 31.7 % (19-41); Mean Corp Hgb Conc 32.6 g/dL (32-36); Mean Corpuscular Hgb 27.4 pg (27.0-32.0); Mean Corpuscular Volume 84.1 fL (81-99); Mean Platelet Vol. 9.9 fl (6.2-12.0); Monocyte# 0.61 X10^3/uL; Monocyte% 6.9 % (0-10); NRBC Flagged by Analyzer 0 % (0-5); Neutrophil # 4.98 X10^3/uL (2.7-7.7); Neutrophil % 56.4 % (47-70); Platelet Count 334 K/mm3 (150-450); RBC Distribution Width CV 12.9 % (11.6-14.6); RBC Distribution Width SD 39.5 fl (35.1-43.9); White Blood Count 8.8 K/mm3 (4.4-11.0)
[2020-09-25 01:06] LABS: Anion Gap 7 (5-15); BUN 7 mg/dL (7-18); BUN/Creat Ratio 9.7 RATIO (10-20); Calcium,Total 8.6 mg/dL (8.5-10.1); Chloride 110 mmol/L (98-107); Creatinine, Serum 0.72 mg/dL (0.55-1.02); EST Glomerular Filtration Rate 106 mL/min (>60); Est Glom Filt Rate - Afr Amer 128 mL/min (>60); Estimated Creatinine Clearance 117.16 ml/min; Glucose 108 mg/dL (74-106); Potassium 3.6 mmol/L (3.5-5.1); Sodium Level 141 mmol/L (136-145)
[2020-09-25] MEDS: Acetaminophen 500 MG Tablet 1000 MG PO (01:23)
[2020-09-25 01:26] VITALS: BP 122/71; PULSE 90; RESP 16; O2SAT 98
[2020-09-25 01:33] LABS: hCG Titer Quant., Serum 4361 mIU/mL (1-3)
[2020-09-25 02:24] LABS: Color, Urine Yellow (Yellow); Glucose, Dipstick Normal (Normal); Ketone-Dipstick 5 mg/dl (Negative); Leukocyte Esterase-Dipstick 25 /ul (Negative); Nitrite-Dipstick Negative (Negative); Occult Blood-Urine 250 /ul (Negative); Protein-Dipstick 30 mg/dl (Negative); Specific Gravity, Urine 1.025 (1.002-1.030); Urine Bilirubin Dipstick Negative (Negative); Urine Clarity Cloudy (Clear); Urine Urobilinogen Normal (Normal)
[2020-09-25 02:25] LABS: Bacteria 0 SEEN /hpf (None Seen); Mucous, Urine 0 SEEN /hpf (<or=2+); Squamous Epithelial Cells - UA 0 SEEN /hpf (5-10)
[2020-09-25 02:31] LABS: Red Blood Cells-Urine 10-25 SEEN /hpf (0-5); White Blood Cells 0-5 SEEN /hpf (0-5)
[2020-09-25] MEDS: Morphine 4 MG/ML Syringe IV (02:36)
[2020-09-25] MEDS: Ondansetron 4 MG/2 ML Vial IM (02:36)
[2020-09-25 03:18] VITALS: BP 122/71; PULSE 90; RESP 16; O2SAT 98
== END 2020-09-25 03:19 | disposition home or self-care (01) ==
PROVIDERS: Emergency Provider Student in an Organized Health Care Education/Training Program; PCP Internal Medicine
DX: O03.9 Complete or unspecified spontaneous abortion without complication (principal); Z3A.01 Less than 8 weeks gestation of pregnancy; Z87.891 Personal history of nicotine dependence
CPT/HCPCS: 76817; 80048; 81001; 84702; 85025; 86900; 86901; 99283; A4216; J2405

== ENCOUNTER 2020-10-08 00:43 | Emergency (ER) | payer OTHER, MEDICAID, SELFPAY ==
[2020-10-08 00:45] VITALS: BP 133/68; PULSE 85; RESP 16; TEMP 36.7; O2SAT 97; BMI 37.2
--- NOTE | 2020-10-08 01:23 | ED.VIS.GEN ---
History of Present Illness Chief Complaint: Dental Informant: Patient Narrative: Patient is a 25-year-old previously healthy female who presents to the emergency department for dental pain. She states she has had chronic issues with this but it recently gotten worse over the past month. She recently got new dental insurance and has an appointment next week. She has been taking Orajel, Tylenol/ibuprofen which has not been giving her relief. She states the pain is severe. She does have sensitivity to heat and cold of the upper and lower teeth on the left side. She does have some ear pain whenever the pain flares up. She denies any headache or neck pain. No chest pain or shortness of breath. No difficulty swallowing. No voice change. She denies any fevers or chills. Past Medical History - Allergies and Home Meds Allergies/Adverse Reactions: Allergies adhesive tape Allergy (Verified 10/08/20 00:44) Rash tomato Allergy (Verified 10/08/20 00:44) Swelling venom-honey bee [bee venom (honey bee)] Allergy (Verified 10/08/20 00:44) Hives Primary Care Physician: Alexandra Stoddard MD [Primary Care Provider] - Prior records reviewed: Yes Past Medical History: None Surgical History: noncontributory Smoking Status: Former smoker Review of Systems All systems negative except as indicated General: Denies: Chills, Fever, Sweats Eyes: Denies: Visual changes - bilaterally, Diplopia ENT: Reports: Left ear pain, - - Dental pain. Denies: Rhinorrhea, Sore throat Cardiovascular: Denies: Chest pain, Palpitations Respiratory: Denies: Dyspnea, Cough, Dyspnea on exertion Gastrointestinal: Denies: Abdominal pain, Nausea, Vomiting Musculoskeletal: Denies: Neck pain, Back pain Skin: Denies: Rash, Wounds Neurological: Denies: Headache Allergy: Denies: Swelling of the mouth Physical Exam Vital Signs/Narrative: Vital Signs Temp Pulse Resp BP Pulse Ox 10/08/20 00:45 98.1 F 85 16 133/68 H 97 Inital Vital Signs reviewed: Yes General: Well nourished, Well developed, No Acute Distress Head: Normocephalic, Atraumatic Eyes: Perrl, EOMI ENT: Moist mucous membranes, No rhinorrhea, TM's clear, - - No obvious drainable abscess appreciated. She does have pain when the upper teeth on the left are touch with the tongue depressor. No oral lesions appreciated. Neck: Supple, Nontender, No lymphadenopathy Cardiovascular: Regular rate, Regular rhythm, No murmurs Respiratory: No distress, CTA bilaterally, Chest nontender Skin: Normal color, No rash Neurological: Alert, Normal Strength, Normal Sensation Psychological: Normal affect, Normal Mood Diagnostic/Tx/Re-eval - Medical Decision Making Patient presents to the emergency department for dental pain. Physical exam is benign. Vital signs within normal limits. She does not appear in acute distress. A dose of penicillin here in the emergency department for dental abscess. We will write a prescription for home treatment. She is given a dose of Toradol. Recommend symptomatic treatment otherwise. She is to keep her appointment with her dentist. Warning signs and symptoms which to return to the emergency department are reviewed. She understands and is agreeable to this plan. She is discharged home in stable condition. All questions answered. ED Disposition - Plan for ED Patient: Disposition: Home or Assisted Living Diagnosis: Dental abscess, Pain, dental Instructions: Dental Abscess, ED Dental Pain Prescriptions: Penicillin V Potassium 500 mg PO 4X/DAY 7 Days #28 tab Prescription Printed Referrals: Alexandra Stoddard MD [Primary Care Provider] - Additional Instructions: Please follow-up with your dentist in 3-5 days.
[2020-10-08] MEDS: Penicillin Vk 250 MG Tablet 500 MG PO (01:31)
[2020-10-08] MEDS: Ketorolac 30 MG/ML Syringe IM (01:31)
== END 2020-10-08 01:41 | disposition home or self-care (01) ==
PROVIDERS: Emergency Provider Emergency Medicine; PCP Internal Medicine
DX: K04.7 Periapical abscess without sinus (principal); Z87.891 Personal history of nicotine dependence
CPT/HCPCS: 96372; 99283

== ENCOUNTER → 2021-01-09 11:29 | Outpatient (CLI) | payer OTHER, SELFPAY ==
[2021-01-09 13:52] LABS: Hematocrit 43.2 % (37-47); Hemoglobin 13.9 g/dL (12.0-15.0); Mean Corp Hgb Conc 32.2 g/dL (32-36); Mean Corpuscular Hgb 25.7 pg (27.0-32.0); Platelet Count 342 K/mm3 (150-450); RBC Distribution Width CV 13.1 % (11.6-14.6); RBC Distribution Width SD 37.5 fl (35.1-43.9); White Blood Count 6.8 K/mm3 (4.4-11.0)
[2021-01-09 14:03] LABS: hCG Titer Quant., Serum 41 mIU/mL (1-3)
[2021-01-09 14:05] LABS: Hemoglobin A1c 5.2 % (3.8-5.6)
[2021-01-09 14:08] LABS: Anion Gap 6 (5-15); BUN 11 mg/dL (7-18); BUN/Creat Ratio 18.1 RATIO (10-20); Calcium,Total 8.7 mg/dL (8.5-10.1); Chloride 107 mmol/L (98-107); Creatinine, Serum 0.61 mg/dL (0.55-1.02); EST Glomerular Filtration Rate 128 mL/min (>60); Est Glom Filt Rate - Afr Amer 154 mL/min (>60); Follicle Stimulating Hormone 0.4 mIU/mL; Glucose 85 mg/dL (74-106); Luteinizing Hormone < 0.2 mIU/mL; Prolactin 8.9 ng/mL; Sodium Level 137 mmol/L (136-145); Thyroid Stim Hormone (TSH) 1.56 uIU/mL (0.358-3.74)
[2021-01-09 14:35] LABS: HIV - WCH Non-Reactive (Nonreactive); Hepatitis B Surface Antigen Non-Reactive (Nonreactive); Hepatitis C Antibody Non-Reactive (Nonreactive); Rubella IgG Reactive (Nonreactive); Syphilis Antibodies Non-reactive
[2021-01-12 08:45] LABS: Progesterone Level 16.15 ng/mL (See Comment)
[2021-01-14 12:28] LABS: Testosterone Free 2.6 pg/mL (0.0-4.2)
[2021-01-21 08:53] LABS: 17-Hydroxyprogesterone 338 ng/dL (.); HCG BETA-SUBUNIT QUANT. 41 mIU/mL (.)
== END ==
PROVIDERS: PCP Internal Medicine; Visit Provider Obstetrics & Gynecology
DX: N91.2 Amenorrhea, unspecified (principal)
CPT/HCPCS: 36415; 80048; 82627; 83001; 83002; 83036; 83498; 84144; 84146; 84402; 84439; 84443; 84702; 85027; 86703; 86762; 86803; 86900; 86901; 87340; 82626

== ENCOUNTER → 2021-01-12 10:19 | Outpatient (CLI) | payer OTHER, SELFPAY ==
[2021-01-12 11:47] LABS: hCG Titer Quant., Serum 122 mIU/mL (1-3)
== END ==
PROVIDERS: PCP Internal Medicine; Visit Provider Obstetrics & Gynecology
DX: N91.2 Amenorrhea, unspecified (principal)
CPT/HCPCS: 36415; 84702

== ENCOUNTER → 2021-01-14 10:05 | Outpatient (CLI) | payer OTHER, SELFPAY ==
[2021-01-14 10:58] LABS: hCG Titer Quant., Serum 205 mIU/mL (1-3)
== END ==
PROVIDERS: PCP Internal Medicine; Visit Provider Obstetrics & Gynecology
DX: N91.2 Amenorrhea, unspecified (principal)
CPT/HCPCS: 36415; 84702

== ENCOUNTER → 2021-01-16 09:06 | Outpatient (CLI) | payer OTHER, SELFPAY ==
[2021-01-16 10:32] LABS: hCG Titer Quant., Serum 340 mIU/mL (1-3)
== END ==
PROVIDERS: PCP Internal Medicine; Visit Provider Obstetrics & Gynecology
DX: N91.2 Amenorrhea, unspecified (principal)
CPT/HCPCS: 36415; 84702

== ENCOUNTER → 2021-01-19 13:07 | Outpatient (CLI) | payer OTHER, SELFPAY ==
[2021-01-19 15:38] LABS: hCG Titer Quant., Serum 800 mIU/mL (1-3)
== END ==
PROVIDERS: PCP Internal Medicine; Visit Provider Obstetrics & Gynecology
DX: N91.2 Amenorrhea, unspecified (principal)
CPT/HCPCS: 36415; 84702

== ENCOUNTER → 2021-01-21 12:05 | Outpatient (CLI) | payer OTHER, SELFPAY ==
[2021-01-21 14:14] LABS: hCG Titer Quant., Serum 1166 mIU/mL (1-3)
== END ==
PROVIDERS: PCP Internal Medicine; Visit Provider Obstetrics & Gynecology
DX: N91.2 Amenorrhea, unspecified (principal)
CPT/HCPCS: 36415; 84702

== ENCOUNTER → 2021-01-23 11:52 | Outpatient (CLI) | payer OTHER, SELFPAY ==
[2021-01-23 14:51] LABS: hCG Titer Quant., Serum 1923 mIU/mL (1-3)
== END ==
PROVIDERS: PCP Internal Medicine; Visit Provider Obstetrics & Gynecology
DX: N91.2 Amenorrhea, unspecified (principal)
CPT/HCPCS: 36415; 84702

== ENCOUNTER 2021-02-10 16:07 | Emergency (ER) | payer OTHER, MEDICAID, SELFPAY ==
[2021-02-10 16:08] VITALS: BP 132/80; PULSE 88; RESP 15; TEMP 36.8; O2SAT 96; BMI 38.2
--- NOTE | 2021-02-10 16:32 | US_ITS ---
INDICATION: Bleeding, 7 weeks EXAMINATION: US OB Transvaginal TECHNIQUE: Transabdominal and transvaginal (for optimal evaluation of the adnexa) pelvic ultrasound was performed. Grayscale, spectral waveform, and color flow Doppler evaluation of the adnexa. COMPARISON: None. LMP: [12/14/2020 FINDINGS: UTERUS: 7.6 x 5.9 x 4.6 cm. RIGHT OVARY: 2.5 x 2.1 x 1.7 cm. Normal. LEFT OVARY: Nonvisualized FREE FLUID: None. INTRAUTERINE GESTATIONAL SAC(s) (size/shape): Single. 2.3 cm. YOLK SAC: Identified POLE: Identified CRL 2 mm. ESTIMATED GESTATION AGE: 6 weeks and 4 days. HEART MOTION: Not identified PLACENTA: Not visualized due to age. SUBCHORIONIC HEMORRHAGE: None. AMNIOTIC FLUID: Qualitatively normal. US/Transvaginal w/Preg US IMPRESSION: Intrauterine of uncertain viability. Per NEJM criteria, recommend follow-up OB ultrasound in no less than 11 days to assess for heart motion. Electronically Signed: Maicol Tariq MD at 18:07 EDT Tel , Service support ,
--- NOTE | 2021-02-10 16:40 | ED.VIS.GEN ---
History of Present Illness Chief Complaint: Vag Bld, Preg Informant: Patient Narrative: Patient is a 25-year-old previously healthy. She at 7 weeks 2 days currently who presents to the emergency department for an episode of vaginal bleeding. She states that she went to the restroom this morning and wiped and it was bright red blood. She thought that there was a clot present. The bleeding has improved. She denies any significant abdominal pain or cramping associated with this. No fevers or chills. She has had some urinary discomfort but has a yeast infection which she is taking medications for. She denies any chest pain or shortness of breath. She has not had a full work-up for the previous miscarriages. She denies any leg swelling or calf pain. She denies any alcohol, drug use. Past Medical History - Allergies and Home Meds Allergies/Adverse Reactions: Allergies adhesive tape Allergy (Verified 02/10/21 16:08) Rash tomato Allergy (Verified 02/10/21 16:08) Swelling venom-honey bee [bee venom (honey bee)] Allergy (Verified 02/10/21 16:08) Hives Primary Care Physician: Alexandra Stoddard MD [Primary Care Provider] - Prior records reviewed: Yes Past Medical History: None Surgical History: noncontributory Smoking Status: Former smoker Review of Systems All systems negative except as indicated General: Denies: Chills, Fever, Sweats Eyes: Denies: Visual changes - bilaterally, Diplopia ENT: Denies: Rhinorrhea, Sore throat Cardiovascular: Denies: Chest pain, Palpitations Respiratory: Denies: Dyspnea, Cough, Dyspnea on exertion Gastrointestinal: Denies: Abdominal pain, Nausea, Vomiting, Diarrhea Genitourinary: Reports: Dysuria, - - Vaginal bleeding. Denies: Hematuria, Frequency Musculoskeletal: Denies: Back pain, Extremity Pain Skin: Denies: Rash, Wounds Neurological: Denies: Headache, Weakness, Numbness Physical Exam Vital Signs/Narrative: Vital Signs Temp Pulse Resp BP Pulse Ox 02/10/21 16:08 98.2 F 88 15 132/80 H 96 Inital Vital Signs reviewed: Yes General: Well nourished, Well developed, No Acute Distress Head: Normocephalic, Atraumatic Eyes: Perrl, EOMI ENT: Moist mucous membranes, No rhinorrhea Neck: Supple, Nontender Cardiovascular: Regular rate, Regular rhythm, No murmurs Respiratory: No distress, CTA bilaterally, Chest nontender Abdomen: Soft, Nontender, Nondistended, Normal bowel sounds Back: Nontender, Normal Inspection Extremities: Nontender, No edema. Negative for: Calf Tenderness Skin: Normal color, No rash Neurological: Alert, Normal Strength, Normal Sensation Psychological: Normal affect, Normal Mood Diagnostic/Tx/Re-eval - Medical Decision Making Patient presents to the ED for vaginal bleeding at 7 weeks . She has a history of 4 other miscarriages. Vital signs within normal limits. She is in no acute distress. She has a benign physical exam. Will check basic lab work and ultrasound of the pelvis. Patient's ultrasound did show an intrauterine but did not show a heart rate. The fetus is measuring small per the date given by the patient. Unfortunately this could be a sign of demise. She will need a repeat ultrasound per the radiologist recommendation. This was made aware to the patient. She understands that she could be passing clots and tissues over the next few days. She can have abdominal cramping with this. She is supposed to call her [employer] in the morning for further instruction based on this. If she develops any worsening pain or uncontrollable bleeding, fever/chills she needs to return to the ED. This time she is discharged home in stable condition. She understands and is agreeable with this plan. All questions answered. ED Disposition - Plan for ED Patient: Disposition: Home or Assisted Living Diagnosis: Vaginal bleeding affecting early Instructions: ED Possible Miscarriage ... Referrals: Alexandra Stoddard MD [Primary Care Provider] - Additional Instructions: Please follow-up with your [employer] tomorrow. You will need a repeat ultrasound.
[2021-02-10 17:01] LABS: Absolute Neutrophil Count 4.4 X10^3/uL (2.0-7.7); Basophil# 0.05 X10^3/uL; Basophil% 0.7 % (0-1); Eosinophil# 0.33 X10^3/uL; Eosinophils% 4.5 % (0-5); Hematocrit 42.3 % (37-47); Hemoglobin 13.9 g/dL (12.0-15.0); Lymphocyte % 25.9 % (19-41); Mean Corp Hgb Conc 32.9 g/dL (32-36); Mean Corpuscular Hgb 26.8 pg (27.0-32.0); Mean Corpuscular Volume 81.7 fL (81-99); Mean Platelet Vol. 9.7 fl (6.2-12.0); Monocyte# 0.61 X10^3/uL; Monocyte% 8.3 % (0-10); NRBC Flagged by Analyzer 0 % (0-5); Neutrophil # 4.41 X10^3/uL (2.7-7.7); Neutrophil % 60.1 % (47-70); Platelet Count 344 K/mm3 (150-450); RBC Distribution Width CV 13.9 % (11.6-14.6); RBC Distribution Width SD 41.1 fl (35.1-43.9); Red Blood Count 5.18 M/mm3 (4.2-5.4); White Blood Count 7.3 K/mm3 (4.4-11.0)
[2021-02-10 17:04] LABS: Mucous, Urine 0 SEEN /hpf (<or=2+); Red Blood Cells-Urine 0 SEEN /hpf (0-5); Squamous Epithelial Cells - UA 0 SEEN /hpf (5-10); White Blood Cells 0 SEEN /hpf (0-5)
[2021-02-10 17:17] LABS: Color, Urine Yellow (Yellow); Glucose, Dipstick Normal (Normal); Ketone-Dipstick Negative (Negative); Leukocyte Esterase-Dipstick Negative /ul (Negative); Nitrite-Dipstick Negative (Negative); Occult Blood-Urine 25 /ul (Negative); Protein-Dipstick Negative (Negative); Urine Bilirubin Dipstick Negative (Negative); Urine Clarity Clear (Clear); Urine Urobilinogen Normal (Normal)
[2021-02-10 17:21] LABS: Anion Gap 4 (5-15); BUN 11 mg/dL (7-18); BUN/Creat Ratio 16.9 RATIO (10-20); Chloride 109 mmol/L (98-107); Creatinine, Serum 0.65 mg/dL (0.55-1.02); EST Glomerular Filtration Rate 118 mL/min (>60); Est Glom Filt Rate - Afr Amer 143 mL/min (>60); Estimated Creatinine Clearance 134.63 ml/min; Glucose 99 mg/dL (74-106); Sodium Level 138 mmol/L (136-145)
[2021-02-10 17:33] LABS: Bacteria RARE /hpf (None Seen)
[2021-02-10 18:08] VITALS: PULSE 78; RESP 18; O2SAT 98
== END 2021-02-10 18:51 | disposition home or self-care (01) ==
PROVIDERS: Emergency Provider Emergency Medicine; PCP Internal Medicine
DX: O20.9 Hemorrhage in early pregnancy, unspecified (principal); Z3A.01 Less than 8 weeks gestation of pregnancy; Z87.891 Personal history of nicotine dependence
CPT/HCPCS: 76817; 80048; 81001; 85025; 86900; 86901; 99282; A4216

== ENCOUNTER 2021-02-20 13:16 | Day surgery (SDC) | payer OTHER, MEDICAID, SELFPAY ==
[2021-02-20] VITALS (9 sets, daily range): BP systolic 101–143; BP diastolic 63–80; PULSE 66–89; RESP 16–18; TEMP 36.5–37.4; O2SAT 97–100; BMI 39.6
--- NOTE | 2021-02-20 | POC_PTH ---
PATIENT: ELLIE NOBLE [place] [facility] [id number] AGE/SX: 25/F ROOM: RE02/20/[address]: Dr. Max Vance MD : 1995 BED: DIS: 02/20/2021 SPEC #: [id number] RECD: 02/20/21 15:22 STATUS: JAELYN REQ #: [id number] RUFUS: 02/20/21 00:[address]: Max Vance DEPT: SURGICAL PATHOLOGY RECD BY: Claudia Barrientos ENTERED: 02/23/21 07:13 SP TYPE: PROD CONC OTHR DR: Dr. Alexandra Stoddard MD Tissues: Product of conception, NOS Procedures: Surgery Specimen Level IV HEADER OPERATION: Dilation and curettage, suction PRE-OP DIAGNOSIS: Missed TISSUE SUBMITTED: Products of conception MICROSCOPIC DIAGNOSIS Products of conception: [place], gestational endometrium and immature chorionic villi (products of conception). SJ:alan 02/24/2021 MICROSCOPIC DESCRIPTION Slides are reviewed. GROSS DESCRIPTION Received in fixative is one container labeled with the patient's name and designated products of conception. The specimen consists of multiple irregular fragments of light to dark dwyer soft tissue that in aggregate measure 8 x 7 x 1.5 cm. parts are not grossly recognized. Toolroom Attendant portions are submitted in one cassette. / AM:alan 02/23/21 TC:5 CPT: 98331
--- NOTE | 2021-02-20 12:30 | HP.PCM_ITS ---
History and Physical Date of Admission: 02/20/21 Surgical History and Physical Date: 02/20/2021 Name: ELLIE GREEN Age: 25 Date of : 1995 Ellie Green, a 25 year old female 0 0 4 1 0, presents for Suction dilation and curettage on February 20, 2021 at 3:30. -- Ellie presents 25 y.o. G 5 P 0 with missed at approximately 6 weeks. Patient with no bleeding, fevers or chills. MEDICATIONS HISTORY: Current medications prescribed by our practice are: 1. Diflucan 150 mg tablet, 1 PO then 1 PO day 3 2. doxylamine succinate 25 mg tablet, 1 PO QD 3. promethazine 12.5 mg tablet, 1 PO every four to six hours PRN Nausea 4. pyridoxine (vitamin B6) 25 mg tablet, 1 PO QD 5. Valtrex 1 gram tablet, 1 PO BID ALLERGIES: Adhesive, Generalized rash, Bee Pollen, Facial swelling, Tomato and Generalized rash Infections - Herpes Simplex Illnesses - depression Accidents - None Hospitalizations - see surgery Review of Systems: GENERAL - Denies fever, or chills SKIN - Denies skin changes EYES - Denies visual changes EARS - Denies difficulty hearing NOSE - Denies nasal congestion or bleeding MOUTH - Denies sore throat or difficulty swallowing NECK - Denies pain or swelling RESPIRATORY - Denies shortness of breath or wheezing CARDIOVASCULAR - Denies palpitations or chest pain GASTROINTESTINAL - slight nausea GENITOURINARY - Denies dysuria, frequency of urination, incontinence of urine MUSCULOSKELETAL - Denies joint or muscle pain NEUROLOGICAL - Denies localized numbness or weakness PSYCHIATRIC - Denies depression or anxiety ENDOCRINE - Denies heat or cold intolerance, weight loss or gain HEMATO-IMMUNOLOGIC - Denies excessive bleeding with cuts SOCIAL HISTORY: Alcohol Use - occasionally Smoking - used to smoke but quit Diet - no special diet Lifestyle - moderate stress lifestyle and single Exercise - active Seat Belt Use - always Employer - [employer] 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 FAMILY HISTORY: MENSTRUAL HISTORY: LMP Known?- DefiniteAmount/Duration - 5 days, Regularity - Regular, Frequency - monthly days, LMP - 12/14/20, Age Onset Menarche - 11 PAST PREGNANCIES: Total Pregnancies - 5; Full Term Pregnancies - 0; Premature - 0; Abortions, Induced - 0; Abortions, Spontaneous - 4; Ectopics - 0; Multiple Births - 1; Living Children - 0 SURGICAL HISTORY: . 2019 [place] Teeth Removal ; - PHYSICAL EXAM BP- 122/72 Sitting, Right arm, regular cuff Weight- 257.71914 lbs Height- 67 inch BMI:40.34 CONSTITUTIONAL - NAD, well nourished, and well developed SKIN - No rash, lesions, or ulcers HEENT - Normocephalic, PERRLA, EOMI NECK - No nodes, no nuchal rigidity and thyroid normal size and texture LYMPH NODES - Palpation of lymph nodes in neck and groins within normal limits ABDOMEN - Without hepatosplenomegaly, distention, masses, rebound, or guarding; normal bowel sounds; no hernias EXTREMITIES - No edema or calf tenderness NEUROLOGICAL - Cranial nerves II-XII grossly intact PSYCHIATRIC - A and O to time, place, person, mood and affect External Genital Vagina - non-tender without lesions Urethra/Urethral Meatus - non-tender Bladder - non-tender Vagina - vaginal escalera are pink and moist without loss of rugae and no evidence of atrophy Cervix - without cervical motion tenderness and has normal size and features without evident lesions Uterus - 5-6 cm in size, mobile and nontender Adnexa - clear without masses or tenderness ASSESSMENT/PLAN: 1. Missed Pt intially with Gestational sac and no yolk sac. Repeat u/s x2 >14 days with no embryo with heart beat. Diagnostic of missed Pt asymptomatic, no bleeding. Educated on findings. Discussed expectant management vs medical management vs surgical management. R/b/a discussed Pt elects for surgical management with suction D. Pt is undecided on sending tissue to pathology for genetic testing
[2021-02-20 14:03] LABS: Hematocrit 44.2 % (37-47); Hemoglobin 14.5 g/dL (12.0-15.0); Mean Corp Hgb Conc 32.8 g/dL (32-36); Mean Corpuscular Hgb 26.7 pg (27.0-32.0); Mean Corpuscular Volume 81.4 fL (81-99); Mean Platelet Vol. 9.9 fl (6.2-12.0); Platelet Count 336 K/mm3 (150-450); RBC Distribution Width CV 13.5 % (11.6-14.6); RBC Distribution Width SD 39.8 fl (35.1-43.9); Red Blood Count 5.43 M/mm3 (4.2-5.4); White Blood Count 7.9 K/mm3 (4.4-11.0)
[2021-02-20] MEDS: Lactated Ringers 1,000 ML 100 ML IV (14:03)
--- NOTE | 2021-02-20 15:35 | DCINST_ITS ---
Discharge Diet: No Restrictions Discharge Activity: Return to Normal Activity, May Drive, May Shower May resume sexual activity in: 4-6 weeks Weight Bearing Status: Weight bearing as tolerated Call your doctor if your incision/area has: Continuous Slow Oozing, Foul Smelling Discharge Call your doctor if you observe: Fever of 101 or Higher, Shortness of breath, Chest pain Allergies/Adverse Reactions: Allergies adhesive tape Allergy (Verified 02/20/21 13:22) Rash latex Allergy (Verified 02/20/21 13:22) Hives tomato Allergy (Verified 02/20/21 13:22) Swelling venom-honey bee [bee venom (honey bee)] Allergy (Verified 02/20/21 13:22) Hives Medications to take at Discharge Ondansetron [Ondansetron Odt] 4 mg PO Q6H PRN PRN #14 tab.rapdis 09/25/20 Vits [Prenatabs FA] 1 tab PO DAILY 10/08/20 Fluconazole 50 mg PO DAILY 02/10/21 Primary Care Physician: Alexandra Stoddard MD [Primary Care Provider] - Test Results: Test results from this visit will be discussed in further detail at your follow- up appointment, if applicable. Please Follow Up With: Max Vance MD When: 2 weeks
--- NOTE | 2021-02-20 15:35 | PCM.OPRPT ---
Report of Operation Date of Procedure: 02/20/21 Pre-Operative Diagnosis: Missed Post-Operative Diagnosis: Missed Surgery/Procedure Performed:: Suction dilation curettage ultrasound-guided Description of Surgical Findings:: Surgeon: Max Vance MD Anesthesia: MAC EBL: 25 cc Urine output: 40 cc IV fluids: 400 cc Complications: None Specimen: None Findings: Nondilated cervix. 7 mm curved suction curette used. Post procedure ultrasound thin endometrial stripe noted. Consent: Patient diagnosed with missed elects for suction dilation curettage. Patient understands the risk of the procedure include but are not limited to visceral or vascular injury, prolonged hospitalization, blood loss need for transfusion, reoperation. Patient stated understanding wished proceed. Patient educated on genetic screening of tissue and declines. All questions answered consent was signed. Procedure: Patient was brought back to the OR where MAC anesthesia found to be adequate. 200 mg of doxycycline IV were given for infection prophylaxis. Patient was apparent draped in dorsolithotomy position with yellowfin stirrups. Weighted speculum placed in the posterior aspect of vagina cervical dilators used dilate cervix. 7 mm curved suction curette was used under direct visualization. Tissue sent to pathology. Post procedure ultrasound with above findings. Good hemostasis noted. All counts correct x2. Patient tolerated procedure well was brought recovery in stable condition. 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
== END 2021-02-20 17:28 | disposition home or self-care (01) ==
LOC: SDC 13:16 → AC 13:18
PROVIDERS: PCP Internal Medicine; Referring Provider Obstetrics & Gynecology; Visit Provider Obstetrics & Gynecology
PROC: (CPT 59820; principal; 2021-02-20 15:10)
DX: O02.1 Missed abortion (principal); F32.9 Major depressive disorder, single episode, unspecified; B00.9 Herpesviral infection, unspecified; Z87.891 Personal history of nicotine dependence; Z3A.01 Less than 8 weeks gestation of pregnancy
CPT/HCPCS: 01965; 59820; 85027; 86850; 86900; 86901; 87426; 88305; J7120; J2405

== ENCOUNTER 2021-04-23 13:24 | Emergency (ER) | payer OTHER, MEDICAID, SELFPAY ==
[2021-02-20 13:54] VITALS: BMI 39.6
[2021-04-23 13:25] VITALS: BP 123/77; PULSE 83; RESP 14; TEMP 36.5; O2SAT 97; BMI 39.1
--- NOTE | 2021-04-23 13:44 | EX.ED.DYSGE1 ---
HPI History of Present Illness Chief Complaint: Anxiety Informant: patient Onset/Context/Timing Onset: Days Context: Gradual Onset Timing: Intermittent Current Severity: Moderate Maximum Severity: Moderate Narrative Narrative: The patient is a 26-year-old female medical history significant for anxiety who presents to the emergency department with increasing panic and anxiety. She states that she had a difficult time managing her anxiety over the past couple weeks. She states that she has had significant stressors at home and at work. She is having frequent panic attacks. She states she is not found anything that improves her symptoms. She states that she was on Zoloft for time and it did not seem like it was working. She did not follow-up with a different doctor since then. She denies being suicidal or homicidal. PFSH PFSH Home Medications lorazepam 0.5 mg PO TID #10 tab 04/23/21 [Rx Last Taken Unknown] Allergy/AdvReac Type Severity Reaction Status Date / Time adhesive tape Allergy Rash Verified 04/23/21 13:27 latex Allergy Hives Verified 04/23/21 13:27 tomato Allergy Swelling Verified 04/23/21 13:27 venom-honey bee Allergy Hives Verified 04/23/21 13:27 [bee venom (honey bee)] Social History Smoking Status: Never smoker ROS ROS ED Constitutional Constitutional ED: Denies chills or fever(s) Eyes Eyes: Denies blurry vision or change in vision ENT ENT ED: Denies ear pain or sore throat Cardiovascular Cardiovascular: Denies chest pain or palpitations Respiratory/Chest Respiratory/Chest: Denies cough, dyspnea or dyspnea on exertion Gastrointestinal Gastrointestinal: Denies abdominal pain, nausea or vomiting Genitourinary Genitourinary ED: Denies dysuria or urinary frequency Musculoskeletal Musculoskeletal: Denies arthralgias or myalgias Integumentary Denies rash Neurologic Neurologic: Denies headache(s) or paresthesias Psychiatric Psychiatric: Reports anxiety; Denies depression Endocrine Endocrinology: Denies polydipsia or polyuria Allergic/Immunologic Allergic/Immunologic ED: Denies urticaria EXAM Physical Exam Const Vital Signs: 04/23/21 13:25 Temperature 97.7 F L Temperature Source Temporal Pulse Rate 83 Respiratory Rate 14 Blood Pressure 123/77 H Blood Pressure Mean 92 Pulse Ox 97 Oxygen Delivery Method Room Air Positive well nourished and well developed General Appearance ED: well developed HEENT Reports normocephalic, head/scalp atraumatic and moist mucous membranes Eyes PERRL and EOMs intact bilaterally Neck no lymphadenopathy and supple General: Negative for tenderness Chest Wall inspection of chest normal Resp normal respiratory effort and clear to auscultation bilaterally Cardio regular rate, regular rhythm and no murmurs GI normal to inspection, nondistended, normoactive bowel sounds Palpation: Negative for tender, guarding or rebound tenderness present Back/Spine no CVA tenderness Cervical Spine: Negative for cervical spine tenderness Thoracic Spine / Upper Back: Negative for thoracic spinal tenderness Extremity normal to inspection General Extremety ED: Negative for tenderness Neuro oriented x3 and CN's II-XII intact bilaterally Neuro Narrative: No focal deficits appreciated. Sensorium / Orientation: alert Psych mental status grossly normal Skin no rashes or lesions noted, no wounds and skin turgor normal MDM MDM MDM Narrative Medical decision making narrative: The patient presents with increasing anxiety and frequent panic attacks. She states she is not suicidal or homicidal. She was given 1 mg of oral Ativan with improvement. I did have social work evaluate the patient as I do think that she would benefit from close outpatient follow-up to help deal with her underlying anxiety. Social work is currently working with the patient. If they do not see any reason that the patient should be hospitalized, we will set her up with appropriate outpatient follow-up. I will prescribe her a short course of Ativan for acute symptom control and she will follow-up as decided. Impression 1. Anxiety reaction Discharge Plan Triage Chief Complaint: Anxiety ED Provider: Kin Lagunas Dx/Rx/DC Orders Instructions: ED Anxiety Reaction Prescriptions: New lorazepam [lorazepam] 0.5 MG tablet 0.5 mg PO TID Qty: 10 RF: 0 Primary Care Provider: Alexandra Stoddard Referrals: Alexandra Stoddard MD [Primary Care Provider] -
[2021-04-23] MEDS: LORazepam 1 MG Tablet PO (13:52)
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
== END 2021-04-23 15:21 | disposition home or self-care (01) ==
PROVIDERS: Emergency Provider Emergency Medicine; PCP Internal Medicine
DX: F41.1 Generalized anxiety disorder (principal); Z79.899 Other long term (current) drug therapy
CPT/HCPCS: 99285

== ENCOUNTER 2021-04-29 08:35 | Outpatient (RCR) | payer OTHER, MEDICAID, SELFPAY ==
--- NOTE | 2021-04-24 10:05 | BH.SGPN.GN ---
Addendum entered and electronically signed by Neva Pacheco 05/05/21 13:35: error on date. correct date is 05/01/21 Original Note: Behaviors/Verbalizations/Mental Status: []Eye contact is good. Alert and oriented. Motor activity is appropriate. Appearance is casual. grooming is appropriate. Speech is Appropriate. Mood is anxious, . Affect is constricted. Thoughts are linear and logical. No evidence of psychosis or hallucinations. Client Response/Progress/Benefit: []Client responded well to session, attentive and taking notes. Client connected with topic of managing emotions. Client was quiet, but she nodded at times. Remained engaged throughout discussion on common barriers to effective emotion regulation which included: shutting down, making assumptions, lashing out, sarcasm, and being passive-aggressive. Engaged in challenge activity highlighting the connection between communication and effective emotion regulation. Client appeared to benefit from gaining increased awareness on common emotion regulation barriers and impacts of ineffective emotion regulation on mental health and personal relationships. Will continue IOP tx to prevent decompensation, reduce social anxiety, and learn healthy coping skills. Narrative Note: []
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
[2021-04-29 10:02] VITALS: BP 114/85; PULSE 82
--- NOTE | 2021-04-29 10:16 | BH.SGPN.GN ---
Behaviors/Verbalizations/Mental Status: []Eye contact is fair to good. Motor activity is appropriate. Appearance is casual, disheveled. Speech is Appropriate, limited input provided. Mood is depressed and anxious. Affect is constricted. Thoughts are linear and logical. No evidence of psychosis. Client Response/Progress/Benefit: [] Client new to IOP tx. She was an attentive participant AEB taking notes, and nodding throughout. Client listening during group discussion reviewing the importance of addressing and learning to cope with anxiety. Attentive during psychoeducation on different types of anxiety disorders. Taking notes as group worked to describe anxiety as well as the impact of anxiety unmanaged anxiety on daily functioning. Nodding in agreement regarding use of avoidance as a safety behavior. Listening as group worked to identify common physical symptoms of anxiety and noted personal anxiety symptoms to include: muscle aches, cloudy thoughts, foggy vision, nausea, and tapping fingers. Benefited from increased insight and awareness from group discussions. Will continue in IOP to improve mood stability, prevent decompensation, and improve consistent skill application. Narrative Note: []
--- NOTE | 2021-04-29 11:16 | BH.SGPN.GN ---
Behaviors/Verbalizations/Mental Status: []Client alert and oriented, casually dressed and groomed. Eye contact fair. Motor activity appropriate. Speech within normal limits. Affect congruent, mood anxious. Thoughts linear, logical, no signs of hallucinations or delusions. Client Response/Progress/Benefit: []Client was an passive participant in group discussion, however appeared to listen attentively to peers. Reviewed safety behaviors she engages in that reinforce anxiety. Attentive during psychoeducation on mindfulness coping skills and their impact on mental health wellness. The group worked together to brainstorm anxiety reduction strategies. Client shared she is willing to practice the following coping skills for anxiety: music, hot shower, and art. Client seemed to benefit from increased repertoire of anxiety reduction skills. Client will continue IOP tx to improve daily functioning, combat distortions, and reduce avoidance behaviors.
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
--- NOTE | 2021-04-29 12:39 | BH.DR.ITP ---
Initial Treatment Plan Patient Information Visit Information: ADMISSION DATE: EXPECTED LOS: 4-6 weeks Problems/Symptoms Problem #1:: Depression Symptom:: Sadness, hopelessness, worthlessness, guilt, hypersomnia, anhedonia, decreased concentration, passive thoughts of Problem #2:: Anxiety Symptom:: Rumination, panic attacks, nightmares, flashbacks, reexperiencing and avoidance
--- NOTE | 2021-05-01 09:01 | BH.SGPN.GN ---
Behaviors/Verbalizations/Mental Status: []Eye contact is good. Motor activity is appropriate. Appearance is casual. Speech is Appropriate. Mood is anxious, depressed. Affect is constricted. Thoughts are linear and logical. No evidence of psychosis. Reviewed daily check in sheet and no reports of suicidal ideations or intent. Client Response/Progress/Benefit: []Pt was attentive participant in group AEB nodding throughout and willing to process with group. Client did well to challenge herself to share despite some anxiety. Shared that her anxiety is her primary stressor and is what she is hoping to work on while in IOP tx. Expressed feeling as though her life is lacking structure right now and that she is struggling with mood swings. Receptive of supportive feedback provided by the group. Benefited from group support, encouragement, and feedback. Will continue in IOP to maintain stability, promote heathy change behaviors, and prevent decompensation. Narrative Note: []
--- NOTE | 2021-05-01 11:10 | BH.SGPN.GN ---
Behaviors/Verbalizations/Mental Status: []Client alert and oriented, casually dressed and groomed. Eye contact good. Motor activity appropriate. Speech within normal limits. Affect constricted, mood anxious. Thoughts linear, logical, no signs of hallucinations or delusions. Client Response/Progress/Benefit: []Client engaged in session AEB client listening attentively to peers and providing input. Attentive during psychoeducation on 4 zones of regulation. Client able to identify feelings and behaviors for each zone. Client identified coping skills that are appropriate to help in each of the emotional zones. Client stated belief that she is most often in the blue and yellow zones. Client explained that she will go from being super anxious all day to exhaustion and depression.. Pt stated being in the yellow zone too often impacts ability to get things done. Identified coping skills that can help her while in the yellow zone to include: taking a walk, hot shower, deep breathing and thought log. Benefited from increased education on zones of regulation or stages of alertness for emotions and healthy coping skills to use for each zone. Will continue IOP tx to increase healthy coping, improve daily functioning, and prevent decompensation. Narrative Note: []
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
--- NOTE | 2021-05-06 09:01 | BH.SGPN.GN ---
Behaviors/Verbalizations/Mental Status: [] Client alert and oriented, casually dressed and groomed. Eye contact fair to good. Motor activity appropriate. Speech within normal limits, soft. Affect constricted, mood anxious and depressed. Thoughts linear, logical, no signs of hallucinations or delusions. Reviewed client?s symptom tracker, suicidal ideation reported as a 4/5 with intent noted to be 1/5. This is consistent with client baseline. Agreeable to meet individually to further assess for risk. Client Response/Progress/Benefit: [] Client responded well to session, attentive, and contributing to discussion when prompted. Client reports feeling exhausted this morning. Shared that she had been up late arguing with her fianc? as they work together and he had informed client of gossip other employees were spreading. Discussed that they had told her fianc? she should ?just get over it? and that her mental health struggles were not valid. Client receptive of suggestions provided on setting a boundary with her fianc? to not discuss what other?s in the workplace are saying as it is not beneficial to her mental health progress. Client did well to identify current wins. These included using opposite action to see friends over the weekend as well as apologizing to her fianc? following the argument rather than going to bed angry. Appeared to benefit from connecting with peers and reflecting on wins. Continues to struggle with anxiety preventing client from engaging fully in treatment environment. Client to continue IOP tx to improve mood stability, reduce anxiety and depression, and continue to promote healthy coping skills.
--- NOTE | 2021-05-06 10:15 | BH.SGPN.GN ---
Behaviors/Verbalizations/Mental Status: [] Eye contact is good. Motor activity is appropriate. Appearance is casual. Speech is Appropriate. Mood is depressed. Affect is flat. Thoughts are linear and logical. No evidence of psychosis. Client Response/Progress/Benefit: [] Pt participated at times during group discussion. Was not present during group activity. Attentive during psychoeducation and while peers worked together to provide insights on what fear of failure is to them. Attentive while peers discussed the negative impact of fear of failure which can lead to; no growth, distorted beliefs, missing opportunities, unrealistic expectations, comparing self to others, isolation, depression, anxiety, and fear of trying.. Benefited from increased awareness of the negative impact of fear of failure can have on mental health and progress. Will continue in IOP to maintain safety, improve functioning, and stabilize mood. Narrative Note: []
--- NOTE | 2021-05-06 11:14 | BH.SGPN.GN ---
Behaviors/Verbalizations/Mental Status: []Client alert and oriented, disheveled appearance. Eye contact good. Motor activity WNL. Speech within normal limits. Affect constricted, mood anxious and dysthymic. Thoughts linear, logical, no signs of hallucinations or delusions. Client Response/Progress/Benefit: []Client responded well to session, engaged and actively participating throughout. Client completed the fear of failure worksheet and reported that fear of failure has kept client from getting her license, getting , and going back to school. Client able to identify thoughts and behaviors that reinforce personal fear of failure which included: seeing failure as a bad thing, comparing herself to others, what if thinking, and lack of support. Client attentive during discussion of the different strategies to help overcome fear of failure. Identified wanting to work on telling herself ?thoughts are thoughts not facts.? Client appeared to benefit from learning ways to overcome fear of failure. Will continue IOP tx to continue to prevent decompensation, improve emotional regulation skills, and combat distortions. Narrative Note: []
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
--- NOTE | 2021-05-20 10:10 | BH.SGPN.GN ---
Behaviors/Verbalizations/Mental Status: [] Client alert and oriented, casually dressed and appropriately groomed. Eye contact good. Motor activity appropriate. Speech within normal limits. Affect constricted, mood anxious and depressed. Thoughts linear, logical, no signs of hallucinations or delusions. Client Response/Progress/Benefit: []Client receptive to session, quiet but actively listening, providing input when prompted, and taking notes throughout. Appeared to connect with topic of stress, as client expressed stress has impacted her ability to make decisions or practice self-care in the past. Worked with the group on brainstorming positive and negative impacts of stress on physical and mental health. Client willing to complete stress jar activity in which participants identified current stressors impacting mental health. Shared top 3 stressors as: returning to work, mental a health, and finances. Expressed that avoidance and lack of knowledge of available resources have impeded her ability to effectively manage stressors and have resulted in increased shutting down, conflict, or isolation in the past. Appeared to benefit from psychoeducation on stress and increasing awareness on own stressors and common stress responses. Recommended to continue with IOP tx to improve skill application, further reduce symptomology, and prevent decompensation. Narrative Note: []
== END 2021-05-06 23:59 ==
LOC: BHIOP 08:35
PROVIDERS: PCP Internal Medicine; Referring Provider Psychiatry & Neurology Psychiatry; Visit Provider Psychiatry & Neurology Psychiatry
DX: F33.2 Major depressive disorder, recurrent severe without psychotic features (principal); F41.0 Panic disorder [episodic paroxysmal anxiety]; F43.10 Post-traumatic stress disorder, unspecified; Z79.899 Other long term (current) drug therapy; F17.210 Nicotine dependence, cigarettes, uncomplicated; Z62.810 Personal history of physical and sexual abuse in childhood; Z62.811 Personal history of psychological abuse in childhood
CPT/HCPCS: S9480; 90837; 90853

== ENCOUNTER 2021-05-07 08:29 | Outpatient (RCR) | payer OTHER, MEDICAID, SELFPAY ==
[2021-05-07 00:36] VITALS: BP 114/85; PULSE 82
--- NOTE | 2021-05-07 09:05 | BH.SGPN.GN ---
Behaviors/Verbalizations/Mental Status: [] Eye contact is good. Motor activity is appropriate. Appearance is casual. Speech is Appropriate. Mood is depressed. Affect is flat. Thoughts are linear and logical. No evidence of psychosis. Reviewed daily check in sheet and pt reports 0/5 for suicidal thoughts and 0/5 for intent. Client Response/Progress/Benefit: [] Pt participated when prompted. Attentive. Daily symptom tracker notes 2/5 for depression. Mental health wins included buying a journal yesterday and writing. She talked at length about what she entered into the journal and her thoughts on why it was helpful. She was feels that journaling was both an outlet emotionally and creatively. She also set boundaries with a peer and deleted her FB account discussing the benefits to her mental health for these actions. Progress noted per pt report. Her tracker notes significant decrease in SI from yesterday to today. Benefited from group support and encouragement. Will continue in IOP to maintain safety, increase healthy coping, and to improve functioning to return to work. Narrative Note: []
--- NOTE | 2021-05-07 10:05 | BH.SGPN.GN ---
Behaviors/Verbalizations/Mental Status: []Client alert and oriented, casually dressed and groomed. Eye contact good. Motor activity appropriate. Speech within normal limits. Affect constricted, mood dysthymic and anxious. Thoughts linear, logical, no signs of hallucinations or delusions. Client Response/Progress/Benefit: []Client engaged in session AEB taking notes and listening attentively to peers. Client shared connecting with the importance of setting boundaries, quiet but client was often nodding. Client assisted group with identifying benefits of setting boundaries such as reduced stress and improved relationships. Client nodded that she struggles with saying no which can lead to worsening mental health and anger. Listened during psychoeducation on different types of boundaries. Client seemed to benefit from increased awareness of how boundaries impact mental health and the different types of boundaries there are. Progress noted in client?s consistent attendance. Will continue IOP tx to prevent decompensation, improve emotional regulation skills, and combat distortions. Narrative Note: []
--- NOTE | 2021-05-07 11:10 | BH.SGPN.GN ---
Behaviors/Verbalizations/Mental Status: []Client alert and oriented, casually dressed and appropriately groomed. Eye contact fair. Motor activity appropriate. Speech within normal limits. Affect constricted, mood anxious. Thoughts linear and intact. no signs of delusions or hallucinations. Client Response/Progress/Benefit: []Client responded well to session AEB listening attentively to peers and providing input and examples throughout. Client engaged in the boundary self-assessment activity. Client stated struggles with asking for help when she is struggling. Client stated this has resulted in her waiting until she hits rock bottom before she gets the help she needs. Client was attentive and contributed during psychoeducation on the different boundary styles. Participated in group discussion brainstorming various strategies for improving healthy personal boundaries. Seemed to benefit from increased awareness of personal boundary style and impact this has on mental health. Will continue IOP tx to decrease anxiety, increase healthy coping and prevent decompensation. Narrative Note: []
--- NOTE | 2021-05-08 09:05 | BH.SGPN.GN ---
Behaviors/Verbalizations/Mental Status: [] Eye contact is good. Motor activity is appropriate. Appearance is casual. Speech is Appropriate. Mood is depressed. Affect is full. Thoughts are linear and logical. No evidence of psychosis. Reviewed daily check in sheet and no reports of suicidal ideations or intent. Client Response/Progress/Benefit: [] Pt participated at times during group discussion on the role of blame in mental health. Emotion for today is content. Mental health wins include continuing to utilize her journal and creative projects as a form of self-care. Went outside yesterday and decreased the amount of avoidance and isolation. States I'm feeling much better than I did earlier in the week. Insight into how making changes have impacted her mental wellness. She has plans to be social this weekend which she is looking forward too. Progress noted per pt report. Will continue in IOP to maintain safety, improve functioning to return to work, and to increase healthy coping skills. Narrative Note: []
--- NOTE | 2021-05-08 10:10 | BH.SGPN.GN ---
Behaviors/Verbalizations/Mental Status: []Client alert and oriented, casual dress, hygiene tended to. Eye contact fiar. Motor activity appropriate. Speech within normal limits. Affect constricted, mood anxious. Thoughts linear, logical, no signs of hallucinations or delusions. Client Response/Progress/Benefit: []Pt mostly passive participant AEB pt providing input during discussion and listened attentively to peers. Pt worked with group to identify benefits of effective problem solving. Listened during psychoeducation about ABCDE problem solving method. Worked with group to identify barriers to effective problem solving which included: anxious thoughts, impatience, denial, not having skills, feeling overwhelmed, and worries about what other people think. Pt seemed to benefit from increased awareness of strategies to help solve a problem. Pt to continue IOP to decrease anxiety, improve confidence and prevent decompensation. Narrative Note: []
--- NOTE | 2021-05-08 11:10 | BH.SGPN.GN ---
Behaviors/Verbalizations/Mental Status: [] Eye contact is good. Motor activity is appropriate. Appearance is casual. Speech is Appropriate. Mood is anxious and depressed. Affect is congruent. Thoughts are linear and logical. No evidence of psychosis. Client Response/Progress/Benefit: [] Pt receptive to session as evidenced by remaining attentive, taking notes throughout discussion, and completing the problem-solving worksheet. Pt stated the problem she wants to work on is lack of independent coping skills. Pt identified skills she can utilize to work on this problem include: continue to attend IOP tx, improve knowledge of healthy coping skills, and improve ability to set and maintain boundaries. Struggle at first with identifying strategies however did well with encouragement. Discussed that working to solve this problem will aid in reducing stress, improving confidence, and reduce anxiety. Pt seemed to benefit from identifying strategies to problem solve through a problem currently impacting mental health. Recommended continued tx to further improve identification and use of healthy coping skills, maintain mood stability, and prevent decompensation. Narrative Note: []
--- NOTE | 2021-05-13 09:00 | BH.SGPN.GN ---
Behaviors/Verbalizations/Mental Status: []Client alert and oriented, casually dressed and groomed. Eye contact good. Motor activity appropriate. Speech within normal limits. Affect constricted, mood anxious and dysthymic. Thoughts linear, logical, no signs of hallucinations or delusions. Reviewed client?s symptom tracker, no risk for suicidal ideation, plan, or intent as of 05/13/21 Client Response/Progress/Benefit: []Client responded well to session, receptive to feedback and strategies. Client reports feeling anxious and tired this morning. Client shared she didn't really do anything this weekend, but after further exploration, client did go for a walk and plan her honeymoon. Client stated she is looking forward to this vacation even though they have to wait awhile. Client reports her biggest stressor right now is worrying about returning to work in a few weeks. Group helped client process and normalize her anxiety about returning to work. Social Security Specialist also encouraged client to practice focusing on day by day goals rather than looking too far in the future. Appeared to benefit from processing her stressor and connecting with peers. Progress noted in client's consistent attendance. Will continue IOP tx to prevent decompensation, learn healthy coping skills, and improve daily functioning. Narrative Note: []
--- NOTE | 2021-05-13 10:10 | BH.SGPN.GN ---
Behaviors/Verbalizations/Mental Status: []Client alert and oriented, casually dressed and groomed. Eye contact fair. Motor activity appropriate. Speech within normal limits. Affect constricted, mood anxious. Thoughts linear, logical, no signs of hallucinations or delusions. Client Response/Progress/Benefit: []Client responded well to session, attentive and frequently contributing to discussion. Client worked with the group to identify factors that contributed to how we define ourselves. Client reported she has experienced the impacts of mental health stigma and that client especially connected with perceived stigma. Client worked with group to identify and discuss social and perceived stigma. Client?s perceived stigma included telling herself ?I shouldn't have kids because don't want to pass my mental health to them.? Client seemed to benefit from increased awareness of how mental health stigma can impact progress and self-worth. Client to continue IOP tx to promote gains in using healthy coping skills and to further improve daily functioning. Narrative Note: []
--- NOTE | 2021-05-14 10:10 | BH.SGPN.GN ---
Behaviors/Verbalizations/Mental Status: [] Client alert and oriented, casually dressed and groomed. Eye contact fair to good. Motor activity appropriate. Speech within normal limits. Affect congruent, mood depressed and anxious. Thoughts linear, logical, no signs of hallucinations or delusions. Client Response/Progress/Benefit: [] Pt was an attentive participant in group discussion AEB actively listening, providing input when prompted, taking notes, as well as completed group worksheet. Attentive as group discussed how learning to manage anger can positively improve mental health sx management. Group worked together to define anger and discussed the ways anger can impact one internally and externally. Pt reported that anger can be triggered by external situations, such as loss. Pt completed the iceberg exercise and identified emotions that tend to ?live under the surface? of anger. Pt also gained awareness of her typical responses to anger which included: shutting down, isolating herself, crying, and started arguments with others. Benefited from group by increasing understanding of the impact of anger on mental health. Recommended continued tx to improve emotion regulation skills, prevent decompensation, and continue to work on improving anxiety and grief management. Narrative Note: []
--- NOTE | 2021-05-14 11:10 | BH.SGPN.GN ---
Behaviors/Verbalizations/Mental Status: []Client alert and oriented, casually dressed and groomed. Eye contact good. Motor activity appropriate. Speech within normal limits. Affect constricted, mood anxious. Thoughts linear, logical, no signs of hallucinations or delusions. Client Response/Progress/Benefit: []Pt was engaged throughout AEB participating in discussion and taking notes. Contributed as group brainstormed healthy coping skills for better managing anger which included: deep breathing, counting, exercise, self-reflection questions, and opposite action. Pt also gained awareness of physical warning signs pt has when feeling anger such as crying, clenching, and getting hot. Pt appeared to benefit from identifying different techniques to manage anger as well as gaining awareness of warning signs. Pt selected taking more walks to better manage anger. Will continue IOP tx to reduce depressive symptoms, gain healthy support, and increase emotional regulation skills. Narrative Note: []
--- NOTE | 2021-05-14 15:45 | BH.MDN_ITS ---
Multi-Disciplinary Note - Note 45-min Individual Time Started:: 09:19 Date: 05/14/21 Purpose of session/treatment goals addressed:: To work on goal #1 of client's tx plan. Eye Contact:: Good Motor Activity:: Appropriate Appearance:: Casual Speech:: Appropriate Mood:: Anxious, Depressed Affect:: Congruent Thoughts:: Linear, Logical, No evidence of hallucinations/delusions noted Staff Interventions:: Therapist used active listening and provided positive encouragement as client discussed current symptoms, stressors, and implementation of healthy coping skills. Used SC techniques to aid client in identifying and beginning to address barriers to tx progress. Provided psychoeducation on negative core beliefs and provided client with mistaken belief questionnaire to complete for homework. Client Response:: Client responded well to session, open to meeting with therapist. Client shared she feels tired and somewhat irritable today as she did not sleep well last night. Client discussed several positive and areas of progress since last session which included beginning an art journal and regularly making time to use it over the past week. Additionally, discussed reaching out to her mom to be a support when client goes to the health dept. Client discussed that she had not been able to go this week due to her mother?s work schedule but that they are planning on doing this soon. Reports understanding the importance in taking this step to move forward in the grieving process. Client denies following up with resources provided for grief counseling as she has been ?really busy? and is hoping to get more comfortable with the group counseling environment before adding anything additional. Reports intending to reach out soon and again acknowledges the importance of addressing her grief in improving overall mental health and mood stability. Discussed wanting to consider trying to conceive again in the future but would like to ?be in a different place? with her mental health and ability to effectively cope prior to doing so. Displayed insight on the potential harmful effects on her mental health and relationship with her fianc? in pushing to try to conceive again before they have had time to heal. Went on to describe that her current biggest concern is returning to work as she fears what other?s will say/how they will treat her. Noted that she had been told by her fianc? that coworkers were spreading rumors and didn?t believe she needed to seek intensive counseling. Expressed struggling with self-esteem and often cares a lot about what other?s think about her. Identified how anxiety about other?s opinions has impacted her own sense of self-worth. Client willing to learn about negative core beliefs and indicated connecting with the concept. Shared that she has struggled with self- compassion and identifying positives about herself most of her life. Willing to complete mistaken beliefs questionnaire for homework. Additionally, identified small goal to spend time reflecting on self-love via creating self-love specific messages in her art therapy journal this week. Risks/Concerns:: Client denies any suicidal ideations, plan, or intent as of 05/14/21. Future oriented and optimistic. Progress Toward Goals/Plan:: Client is making progress AEB her report of applying healthy coping skills and no SI on this date. Although her mood is improved today, client continues to struggle with managing her depression, negative thinking, and chronic passive SI. Client will continue IOP tx to promote mood stability, improve daily functioning, and increase healthy coping skills. Time Stopped:: 10:03
--- NOTE | 2021-05-15 09:00 | BH.SGPN.GN ---
Behaviors/Verbalizations/Mental Status: []Client alert and oriented, casually dressed and groomed. Eye contact good. Motor activity appropriate. Speech within normal limits. Affect constricted, mood irritable. Thoughts linear, logical, no signs of hallucinations or delusions. Reviewed client?s symptom tracker, no risk for suicidal ideation, plan, or intent as of 05/15/21 Client Response/Progress/Benefit: []Client responded well to session, attentive and engaged. Client reports feeling irritable lately. Client stated she has been working on the homework her individual therapist gave her, but client is struggling with it. The group offered suggestions and client support coordinator encouraged client to communicate her struggles with her therapist. Client reported she has been journaling which was one of her goals when client started IOP. Client shared she has been finding positive quotes to put in her journal as well. Appeared to benefit from getting feedback from peers and reflecting on wins. Progress noted in client's increased engagement, but she continues to struggle with regulating her emotions and challenging distortions. Will continue IOP tx to prevent decompensation, improve daily functioning, and learn healthy coping skills. Narrative Note: []
--- NOTE | 2021-05-15 10:12 | BH.SGPN.GN ---
Behaviors/Verbalizations/Mental Status: [] Client alert and oriented, casually dressed and groomed. Eye contact good. Motor activity appropriate. Speech within normal limits. Affect congruent, mood depressed and anxious. Thoughts linear, logical, no signs of hallucinations or delusions. Client Response/Progress/Benefit: [] Pt was an engaged though mostly passive participant in group discussion, providing limited input but was attentive during psychoeducation. Participated in short activity about automatic thoughts, indicated relating to how automatic thoughts can harm self-esteem and communication with others. Group was primarily educational, therapist introduced and gave examples of the 10 cognitive distortions. Benefited from education and increased awareness of cognitive distortions and role that they play in negative thoughts and emotions. Pt reported connecting with the following distortions: catastrophizing and minimizing, labeling, should and musts, and disqualifying the positives. Shared that distortions have kept her from being kinder to herself. Will continue IOP tx to prevent decompensation, increase healthy coping skills, and improve daily functioning impacted by depression and anxiety. Narrative Note: []
--- NOTE | 2021-05-15 11:15 | BH.SGPN.GN ---
Behaviors/Verbalizations/Mental Status: []Client alert and oriented, disheveled appearance. Eye contact good. Motor activity appropriate. Speech within normal limits. Affect congruent, mood euthymic. Thoughts linear, logical, no signs of hallucinations or delusions. Client Response/Progress/Benefit: []Client was an active participant AEB client participating in distortion jeopardy. Attentive and contributing during psychoeducation and additional discussion on cognitive distortions. Client engaged while group practiced identifying and reframing distorted thought patterns. Client shared struggling with distortion of ?labeling? and identified asking herself ?if I would say this to a loved one? to help combat this distortion. Client seemed to benefit from reframing distorted thoughts and brainstorming several skills for challenging distortions. Will continue IOP tx to prevent decompensation, improve emotional regulation, and increase healthy coping skills. Narrative Note: []
--- NOTE | 2021-05-20 09:00 | BH.SGPN.GN ---
Behaviors/Verbalizations/Mental Status: []Eye contact is good. Motor activity is appropriate. Appearance is casual. Speech is Appropriate. Mood is depressed and stressed. Affect is flat. Thoughts are linear and logical. No evidence of psychosis. Reviewed daily check in sheet and pt denies any suicidal ideations or thoughts of today. Client Response/Progress/Benefit: []Client responded well to session, receptive to encouragement. Client reports feeling burnout this morning and shared her biggest stressor right now is returning to work. Client received support and advice from peers on returning to work and managing anxiety. Client stated she has been challenging herself to do activities she used to enjoy such as ximena art and watching movies with her fiance. Appeared to benefit from connecting with peers and progress noted in increased participation in group. Will continue IOP tx to help client transition back to work and promote long-term mood stability. Narrative Note: []
--- NOTE | 2021-05-20 11:59 | PCM.BH.PN ---
Progress Note Progress Note: History of Present Illness/Interim History: [] The patient is a 26-year-old female who is seen in follow-up at the [facility] behavioral health IOP program. I last saw the patient 3 weeks ago and at that time she was started on Lexapro to help with her depression and anxiety. The patient is tolerating the Lexapro well. She says her mood is less depressed than it was before. Her anxiety has also improved. She has not used any Ativan since her last visit with me. She had a nosebleed early last week 1 time only and at this point does not feel it was related to the Lexapro. She states that her passive thoughts of have resolved in the past week or 2. She denies any suicidal ideation passive or active, plan for suicide, homicidal ideation, hallucination, delusions or symptoms of kirstie. Her panic attacks have become much less and less frequent. She does complain that her acne is flaring up. The patient states that she thinks she took an antibiotic for her acne in the past that worked and she agrees to discuss this with the PCP when she gets one. Current Psychiatric Medications: [] Lexapro 10 mg p.o. daily (x3 weeks) Mental Status Examination: [] The patient is a 26-year-old female who is seen wearing a mask due to the pandemic and appears normal for stated age. Eye contact is good and speech is normal rate and rhythm and fluent with no pressure. Despite the mass the patient has severe acne all over her face. Her mood is mildly depressed. Affect is constricted but brighter than the initial visit. Thought process is goal-directed and organized. Thought content: There is no evidence of passive thoughts of , suicidal ideation, homicidal ideation, plan for suicide, hallucinations or delusions. Judgment is intact. Insight: Improving. Impulsivity: Low to moderate. Diagnoses: [] 1. Major depressive disorder, recurrent, severe without psychosis 2. Panic disorder 3. PTSD 4. Facial acne 5. History of recurrent spontaneous abortions x7 6. Primary support and work issues Plan: [] The patient will continue the IOP program at [facility] as the structure, support, education, and group therapy will hopefully prevent worsening of the patient's symptoms which might require hospitalization. She felt safe during the interview and if it anytime she does not feel safe she will let us know or go to the emergency room. The risks, options, possible side effects and complications of the medications were discussed again with the patient and she understands and accepts these. She agrees to increase her Lexapro to 20 mg p.o. daily. She will take 2 of the 10 mg and then a prescription was sent in for the 20 mg dose with 0 refills. In addition a prescription was sent in for minocycline 100 mg, 1 p.o. daily with 2 refills. She agrees to follow-up with her primary care physician and get a referral to a core dropper if needed for her severe acne. She will continue to follow-up with her other outpatient provider. I will see the patient in follow-up in 2 weeks.
--- NOTE | 2021-05-21 09:01 | BH.SGPN.GN ---
Behaviors/Verbalizations/Mental Status: []Pt eye contact good, casually dressed, motor activity appropriate, speech normal rate and tone, mood anxious, congruent affect, thoughts linear and intact, no evidence of delusions or hallucinations. Reviewed client?s symptom tracker, pt indicates a 2/5, with 5 being severe, for suicidal thoughts and a 0/5 for suicidal intent. This is below pt's suicidal baseline for suicidal thoughts. Client Response/Progress/Benefit: []Pt responded well to session AEB pt listening attentively to peers, and openly sharing thoughts and feelings. Pt reported mental health positive as working on her ximena art last night. Pt reported she finds doing art enjoyable. Pt stated additional mental health positives as improved mood and decreased suicidal ideation since starting IOP. Pt stated current stressor is having to return to work next week. Pt shared feeling anxious about having to be around people and back in the chaos. Pt seemed to benefit from expressing thoughts and feelings. Pt to continue IOP to continue practicing healthy coping skills, challenge distorted thoughts and prevent decompensation. Narrative Note: []
--- NOTE | 2021-05-21 09:53 | BH.MDN_ITS ---
Multi-Disciplinary Note - Note 45-min Individual Time Started:: 08:45 Date: 05/21/21 Purpose of session/treatment goals addressed:: To process mistaken belief homework and explored replacement affirmational phrases and activities for improving self-esteem. Discussed return to work. Eye Contact:: Good Motor Activity:: Appropriate Appearance:: Casual Speech:: Appropriate Mood:: Anxious, Depressed Affect:: Congruent Thoughts:: Linear, Logical, No evidence of hallucinations/delusions noted Staff Interventions:: Therapist reviewed with client the mistaken belief assessment and processed findings. Therapist introduced concept of self- compassion to encourage client to be kinder to self and aided client in identifying alternative more compassionate affirmational statements he can use to combat mistaken beliefs. Discussed activities client enjoys that aid that may aid in improving self-esteem. Therapist and client discussed expectations and plan for return to work. Client Response:: Client responded well to session, open to meeting with therapist. Client shared she recently watched a movie about loss and grief. Shared she enjoyed the film but it brought up a lot of her own unprocessed grief. Denies reaching out to the grief counseling resources provided, however notes writing down the grief hotline number provided at the end of the film. Therapist continued to encourage cinet to pursue grief specific counseling and discussed the importance of doing so on her overall mental health. Client reflected that she believes this is why she is having a lot of anxiety about retuning to work. Explained that her work environment has several triggers for her grief as she worked in the same area as her close friend and co-worker that recently . Shared that she has told herself to ?just deal with it? as she feels pressure to return to work but is fearful she will be unable to manage her emotions once actually back in the environment. Worked with therapist to identify ways to improve the environment as well as coping strategies she may use. Noted she can contact HR about moving to a different area of the facility until further working through her grief so that she is not continuously exposed to potential triggers. Set a personal goal of doing so by Tuesday. Additionally, identified that writing and drawing has been helpful and indicated she could spend time after work engaging in these activities to help with processing her day. Identified one coworker she feels she could use for support as well. CLient provided some insight that her own self-esteem can make the workplace difficult to be in as she is often worried others are talking about or judging her, especially after her fianc? mentioned gossip about client since she?s been on FMLA. Discussed boundary setting in the workplace. Client identified common negative thoughts she has about herself and how these relate back to the different mistaken beliefs she scored highest for on the mistaken beliefs assessment. Client and therapist completed an example mistaken belief reframe and began reviewing alternative statements for reframing identified negative core beliefs. Client receptive to discussion on self-compassion and affirmational statements and willing to explore positive self-talk statements to begin regularly reminding himself of. Receptive of discussion on self-esteem building activities. Identified plans to continue to work on thought reframing for homework. Risks/Concerns:: Client denies any suicidal ideations, plan, or intent as of 05/21/21. Future oriented. Protective factors noted Progress Toward Goals/Plan:: Client continues to demonstrate progress as she reports feeling improvements in her mental health insight and reduction in sx of depression. Noted no longer experiencing any suicidal ideation. Discussed continuing to struggle with grief which has reinforced anxiety about return to work. Willing to discuss strategies for addressing and beginning to cope with ongoing grief. Discussed wanting to continue to work on improving self-esteem as she has developed increased insights into her own negative core beliefs. continue IOP tx to reduce sx severity, improve emotion regulation, and prevent decompensation. Time Stopped:: 09:30
--- NOTE | 2021-05-21 10:02 | BH.SGPN.GN ---
Behaviors/Verbalizations/Mental Status: []Eye contact is good. Motor activity is appropriate. Appearance is casual. Speech is Appropriate. Mood is anxious. Affect is constricted. Thoughts are linear and logical. No evidence of psychosis. Client Response/Progress/Benefit: [] Pt was an attentive participant in group discussion and willingly engaged during activity. Attentive during psychoeducation and taking notes. Reflected connecting with topic of personal pitfalls and how they can impede mental health treatment progress. Pt mostly passive, though did note that ?being sick of feeling uncomfortable can lead to making changes so you are no longer uncomfortable.? Pt and peers provided examples of personal pitfalls or setbacks that impact mental health which included; isolation, avoidance, procrastination, denial, poor self-care, and ruminating on externals. During experiential activity pt along with peers identified several pitfalls from the activity that are also associated with mental health which included; poor communication, assumptions, lack of awareness, negative self-talk, fear of failure, and personalizing. Did well to engage more during this when encouraged by peers and provided with supportive feedback. Benefited from group by increasing awareness of pitfalls which can impact mental health. Pt will continue in IOP to prevent decompensation, continue to provide a supportive environment, further improve mood stability, and continue to promote healthy skill application. Narrative Note: []
--- NOTE | 2021-05-21 11:00 | BH.SGPN.GN ---
Behaviors/Verbalizations/Mental Status: []Client alert and oriented, casually dressed and groomed. Eye contact good. Motor activity appropriate. Speech within normal limits. Affect constricted, mood dysthymic. Thoughts linear, logical, no signs of hallucinations or delusions. Client Response/Progress/Benefit: []Client receptive of session, engaged throughout AEB client actively listening and contributing to discussion, as well as taking notes. Client completed worksheet identifying personal pitfalls impacting mental health progress. Client identified the following pitfalls: lack of self-care, lack of communication, lack of boundaries, isolation, unrealistic expectations, and lack of self-esteem. Group learned different coping skills to help manage pitfalls. Client will work on overcoming unrealistic expectations by using compassion for others and for herself. Benefited from identifying personal pitfalls and strategies to overcome these pitfalls. Will continue IOP tx to prevent decompensation, improve daily functioning, and reduce negative thinking patterns. Narrative Note: []
--- NOTE | 2021-05-26 09:05 | BH.SGPN.GN ---
Behaviors/Verbalizations/Mental Status: [] Eye contact is good. Motor activity is appropriate. Appearance is casual. Speech is Appropriate. Mood is anxious. Affect is congruent. Thoughts are linear and logical. No evidence of psychosis. Reviewed daily check in sheet and no reports of suicidal ideations or intent. Client Response/Progress/Benefit: [] Pt participated when prompted. Attentive. Emotion for today is chill. Shared a few mental health wins which included socializing with family. Overall reports that she is managing her emotions and thoughts pretty well. She is anxious about returning to work next week as co-workers are one of the stressors which led to decompensation and admission to ER and IOP. She believes that she has more confidence and coping skills to manage work stressors and difficult co-workers however is still very anxious. Group provided support and encouragement which was beneficial. Will continue in IOP to maintain gains and help with transfer back to work full-time. Narrative Note: []
--- NOTE | 2021-05-26 10:16 | BH.SGPN.GN ---
Behaviors/Verbalizations/Mental Status: [] Client alert and oriented, casually dressed and groomed. Eye contact fair to good. Motor activity appropriate. Speech within normal limits, soft. Affect constricted, mood anxious. Thoughts linear, logical, no signs of hallucinations or delusions. Client Response/Progress/Benefit: [] Pt actively engaged in group discussion on conflict and the potential benefits of healthy approaches to conflict on mental health as well as barriers in taking a healthy approach to conflict resolution. Pt struggled at first to provide input though challenged herself to do so as group discussion progressed. Shared ?Fear of how I will respond if it doesn?t go well or I?m disappointed? has been a barrier to conflict resolution for her. Pt attentive and engaged during psychoeducation about different conflict styles (avoidant, accommodating, cooperative, and competing). Pt identified most often uses accommodating style conflict which leads to shutting down and allowing others to make the decisions. Seemed to benefit from increased awareness of the different conflict styles. Pt to continue IOP to continue use of healthy coping skills, continue improving mood stability, and prevent decompensation as client transitions back to work. Narrative Note: []
--- NOTE | 2021-05-26 14:25 | BH.MDN ---
Multi-Disciplinary Note - Note 45-min Individual Time Started:: 11:55 Date: 05/26/21 Purpose of session/treatment goals addressed:: Purpose of this session was to discuss client return to work plan and strategies for managing her mental health in doing so. Additional topics discussed is client 4 week treatment plan review. Eye Contact:: Good Motor Activity:: Appropriate Appearance:: Casual Speech:: Appropriate Mood:: Anxious, Dysthymic Affect:: Congruent Thoughts:: Linear, Logical, No evidence of hallucinations/delusions noted Staff Interventions:: Therapist used active listening and asked furthering questions to elicit information regarding client perception of current symptoms, implementation of healthy coping skills, and treatment progress thus far. Reviewed and processed with client DSM-5 scores from intake and at time of treatment review. Used CA techniques to aid client in identifying areas of continued progress, as well as goals to continue focusing on. Discussed upcoming return to work, processing associated anxiety, and reviewed client return to work plan with specific calming skills, supports, and supportive statements she can use. Client Response:: Client was receptive of meeting with therapist, actively engaged throughout. Discussed that she has been ?trying to stay calm about returning to work? but is still rather anxious. Noted that the HR Dept. Has not yet returned her email requesting a meeting to discuss client return to work needs and potential accommodations. Client reports that although this is a stressor she can reach out to her supervisor [employer] to at least better prepare herself for what to expect her first day back and continue to reach out to HR upon her return to work this Tuesday. Client and therapist reviewed return to work plan which includes several workplace supports, calming skills, and positive self-talk statements for coping with negative thoughts and potential triggers. Identified bathroom breaks as time she can get away from the environment and take deep breaths, splash water on her face, or have a few moments without her mask. Client additionally identified plans to make better use of her scheduled breaks and reserve that time for journaling or reaching out to supports. Expressed that although she is anxious, she feels ready to start back at her job. Client and therapist reflected on the progress client has made over the past 4 weeks, reviewing changes in DSM-5 scores. Client noted surprise at how much her scores have reduced overall and expressed a sense of accomplishment at this. Identified progress in improved communication with her fianc?, increased self-care/engagement in activities she enjoys, increased confidence, and reduced depression. Client continues to endorse grief symptoms and is reluctant to reach out to outpatient resources for ongoing grief counseling, though does note she will continue to think about this option. Risks/Concerns:: No risks or problems noted. Client is not currently connected with aftercare providers at this time. Was given a list of recommended outpatient therapists, psychiatry services, and primary care options. Reports plans to reach out to schedule an initial intake appointment this week. Client denies any active SI, plan, or intent as of this date, 05/26/21. Progress Toward Goals/Plan:: Progress noted per client self-report and reduction of DSM-5 scores. DSM-5 scores reflect an overall ---% reduction, please refer to treatment plan review for this date to obtain more detailed information. Progress identified by client as improved self-esteem, reduced depression, no longer reports suicidal ideation, and increased desire to engage in daily activities. Client does reports one fleeting passive thought of occurring yesterday. Denies this lasting longer than a few seconds and reports it was easily controlled. Denies active thoughts, plan, or intent. Client reports some anxiety about return to work, however has a concrete coping plan to manage her mental health upon return and is feeling more confident in her ability to do so. Will return 06/01/21, on a reduce schedule. Will continue IOP tx to maintain gains, continue to promote mood stability and further address grief triggers, as well as prevent decompensation as client successfully transitions back to work. Time Stopped:: 12:57
--- NOTE | 2021-05-27 13:18 | BH.TPR ---
Treatment Plan Review Date of Admission:: 04/29/21 Date of Treatment Plan Review:: 05/27/21 Admitting Diagnoses:: 1. Major depressive disorder, recurrent, severe without psychosis. 2. Panic disorder. 3. PTSD Current Diagnoses:: 1. Major depressive disorder, recurrent, severe without psychosis. 2. Panic disorder. 3. PTSD Patient's Response to Treatment:: Client is responding well to IOP tx AEB her overall symptoms reducing by 76%. Client's depression has decreased by 100%, anxiety by 70%, and irritability by 75% per DSM-5 assessment since IOP admission. Additionally, client has denied any Si since beginning IOP tx. Client is actively engaged and often provides input during group session when encouraged, thought continues to struggle to do so independently. Client is becoming more consistent with coping skill application and is engaged in both group and individual sessions. Client's attendance is consistent, and she is medication compliant. Status of Current Problems and Symptoms: Client continues to report mild to moderate symptoms of depression, specifically related to ongoing grief which client has struggled to seek treatment for. Continues to report struggling with self-esteem. Client's depressive symptoms are still reduced compared to admission to IOP. Client continues to report limited healthy support within the workplace impacts client's mental health and has increased anxiety about returning to work. She has however made progress in improving her self-care, thought challenging, and is continuing to work on healthy boundary setting. Client's SI has decreased significantly, no longer reports experiencing any active SI. Problem #1 Problem Name:: Depression Status of Goals:: Objective 1- complete with ongoing work encouraged. Client?s DSM-5 scores for depression have decreased by 100% and not feeling close to people or enjoying relationships has reduced by 50%. Client has been using positive self-talk, reaching out to supports, and more consistently practicing self-care to cope with depression and ongoing guilt. Ongoing work encouraged as client reports she has been continuing to struggle with complex grief. Objective 2- ongoing work encouraged. Client has continued to express struggling with negative thoughts about herself which has impacted her overall self-esteem. Working on identifying negative core beliefs and beginning to identify statements to improve her core beliefs. Engaging in activities she enjoys and regularly journaling. Team Recommendations:: Treatment team recommends that client continue working on establishing healthy workplace supports, challenging negative self-talk, and increasing self-care. Problem #2 Problem Name:: Anxiety Status of Goals:: Objective 2- partially complete. Client has learned about cognitive distortions and with help can begin to combat anxiety provoking thoughts. Client can continue to improve on challenging negative, anxious thoughts. Objective 1- complete with ongoing work encouraged. Client?s anxiety has decreased by 70% since admission. Client has been using opposite action, thought challenging, and self-care to manage anxiety. Client is currently working on creating a return to work plan for managing anxiety. Team Recommendations:: Treatment team recommends client to continue to work on consistent use of calming skills, boundary setting, and thought challenging as well as create a concrete return to work plan.
--- NOTE | 2021-05-28 09:00 | BH.SGPN.GN ---
Behaviors/Verbalizations/Mental Status: []Pt eye contact good, casually dressed, motor activity appropriate, speech normal rate and tone, mood euthymic, congruent affect, thoughts linear and intact, no evidence of delusions or hallucinations. Reviewed client?s symptom tracker, no signs of suicidal ideation, plan, or intent as of today. Client Response/Progress/Benefit: []Pt responded well to session AEB pt openly sharing thoughts and listening attentively to others. Pt identified mental health positive as going out with a friend for tea. Pt stated she has been isolating less often. Pt shared she is excited for the weekend because is doing self-care by getting her hair cut and colored. Pt identified stressor as going back to work soon. However, pt reported she does feel more ready to return to work compared to when she first started IOP. Pt seemed to benefit from expressing thoughts and feelings. Pt to continue IOP to maintain gains, successfully transtion back to work and prevent decompensation. Narrative Note: []
--- NOTE | 2021-05-28 10:10 | BH.SGPN.GN ---
Behaviors/Verbalizations/Mental Status: [] Eye contact is good. Motor activity is appropriate. Appearance is disheveled. Speech is Appropriate. Mood is depressed. Affect is flat. Thoughts are linear and logical. No evidence of psychosis. Client Response/Progress/Benefit: [] Pt participated at times during the group discussion. Active participant in group activity. Attentive during psychoeducation on the 5 stages of change. Pt provided insight while group worked to identify barriers to change which included; being complacent, fear of the unknown, being uncomfortable, fearful that any change will be overwhelming, accustomed to current life, and knowing what to expect (even if its negative) is comfortable. During activity group processed emotions commonly associated with change along with her peers. Emotions processed were exhausted, cautious, hopeful, frustrated, overwhelmed, confident, frightened, relief, and excitement. Benefited from increase awareness of the emotions associated with change and how these emotions can encourage or disrupt change. Will continue in IOP to maintain gains, increase healthy coping, and improve functioning to return to work. Narrative Note: []
--- NOTE | 2021-05-28 11:12 | BH.SGPN.GN ---
Behaviors/Verbalizations/Mental Status: []Client alert and oriented, casually dressed and groomed. Eye contact good. Motor activity appropriate. Speech within normal limits. Affect congruent, mood anxious. Thoughts linear, logical, no signs of hallucinations or delusions. Client Response/Progress/Benefit: []Client was an active participant, contributing to discussion and participating in the activity. Client participated during discussion and psychoeducation on the stages of change. Client reports wants to work on setting healthy boundaries and be able to say ?no? without giving a reason. Client reports she is currently in the preparation stage as client has learn many strategies to help with this, but she has not been able to apply strategies consistently yet. Client identified personal barriers such as not wanting to hurt others and fear of the unknown. Client stated when these barriers arise, client can challenge distortions. Appeared to benefit from reflecting on the stages of change and the progress client has made. Will continue IOP tx to promote mood stability, further improve daily functioning, and combat distortions. Narrative Note: []
--- NOTE | 2021-05-29 09:05 | BH.SGPN.GN ---
Behaviors/Verbalizations/Mental Status: [] Eye contact is good. Motor activity is appropriate. Appearance is casual. Speech is Appropriate. Mood is euthymic. Affect is flat. Thoughts are linear and logical. No evidence of psychosis. Reviewed daily check in sheet and no reports of suicidal ideations or intent. Client Response/Progress/Benefit: [] Pt was an active participant in group discussion on empathy vs sympathy. Attentive. Provided appropriate feedback. Emotion for today is satisfied and excited. Mental health wins include self-care. Pt got a haircut yesterday and went on a long walk. She was feeling even better as her fiance commented positively on her hair. She is anxious that she has to return back to work next week. She reports that she feels ready. Reached out to a co-worker and apologized to her for some events which occurred prior to starting FMLA. Co-worker was receptive which helped ease pt's anxiety. She has also made some decisions about how she is going to manage a difficult co-worker which she feels will benefit her mental health. Progress noted per pt report. Benefited from group support, encouragement, and feedback. Will continue in IOP to maintain gains and transition back to work. Narrative Note: []
--- NOTE | 2021-05-29 10:10 | BH.SGPN.GN ---
Behaviors/Verbalizations/Mental Status: [] Eye contact is good. Motor activity is appropriate. Appearance is casual. Speech is Appropriate. Mood is anxious. Affect is congruent. Thoughts are linear and logical. No evidence of psychosis. Client Response/Progress/Benefit: [] Pt participated at times during group discussion. Attentive during psychoeducation. Shared thoughts and insights along with peers on myths that are commonly associated with self-care. Common myths that group identified included self-care is .... selfish, lazy, takes to much time, has to be fun, is a privilege, is expensive, and is self-indulgent. Group worked together to attempt to bust these common myths about self-care. Pt along with her peers were able to identify barriers to self care such as; feeling to busy, prior commitments, urge to put others first, lack of finances, and feeling as if they don't deserve self-care. Pt and group were also able to identify the benefits to self-care which included; clarity, decreased stress, more energy, stability, increased self-esteem, having a purpose or something to look forward too. Benefited from group by increasing awareness of the benefits to self-care and challenging common myths that hinder one from utilizing self-care. Will continue in IOP to maintain gains, prevent decompensation, and improve functioning to return to work. Narrative Note: []
--- NOTE | 2021-05-29 11:03 | BH.SGPN.GN ---
Behaviors/Verbalizations/Mental Status: [] Client alert and oriented, casually dressed and groomed. Eye contact good. Motor activity appropriate. Speech within normal limits. Affect congruent, mood euthymic, anxious. Thoughts linear, logical, no signs of hallucinations or delusions. Client Response/Progress/Benefit: [] Client did well to remain an engaged participant AEB client taking notes during discussion, providing input, and listening attentively to peers. Attentive during group discussion on the various areas of self-care, benefits, and activities to improve self-care in each area. Client completed worksheet in which client identified current self-care practices and what self-care activities client wants to start using. Client expressed wanting to work on improving professional self-care, noting she has learned a lot about her mental health and would like to find better work-life balance by continuing to advocate for herself and det healthy boundaries in the workplace. Appeared to benefit from reflecting on the area of self-care client can improve and setting a small goal. Will continue IOP tx to increase mood stability, maintain safety, and prevent decompensation. Narrative Note: []
--- NOTE | 2021-06-02 09:00 | BH.SGPN.GN ---
Behaviors/Verbalizations/Mental Status: [] Eye contact is good. Motor activity is appropriate. Appearance is casual. Speech is Appropriate. Mood is euthymic. Affect is full. Thoughts are linear and logical. No evidence of psychosis. Reviewed daily check in sheet and no reports of suicidal ideations or intent. Client Response/Progress/Benefit: [] Pt participated when prompted. Attentive. Emotion for today is tired. Mental health win was returning to work yesterday. Pt states it wasn't horrible and she was surprised that a lot of people missed her. Reports that she was stressed and anxious however was able to work thought her emotions and utilize skills. She also felt more confident around others. States that she Actually asked for help. She followed through with her plan to avoid certain conflicts and people which she reports was helpful. More motivated and future-oriented. Progress noted per pt report. Benefited from group support, encouragement, and feedback. Will continue in IOP to maintain gains and provided support and she transitions back to work. Narrative Note: []
--- NOTE | 2021-06-02 10:08 | BH.SGPN.GN ---
Behaviors/Verbalizations/Mental Status: []Client alert and oriented, casually dressed and groomed. Eye contact good. Motor activity appropriate. Speech within normal limits. Affect constricted, mood content. Thoughts linear, logical, no signs of hallucinations or delusions. Client Response/Progress/Benefit: []Client responded well to session, attentive and contributing to discussion. Group discussed potential barriers to communication including: yelling, shutting down, passive-aggressive behaviors, and mind-reading. Client nodded that she will use the ?cold shoulder? to get people to understand she is upset, but this ends up backfiring. Helped group identified positives of having effective communication skills. Attentive during psychoeducation on the four communication styles. Client reported she most often uses passive communication, but she is working on being more assertive at work. Able to recognize negative outcomes of passive communication style. Seemed to benefit from increased awareness of the different communication styles and identify personal communication style. Client to continue in [facility] tx to help client manage emotions while transitioning back to work. Narrative Note: []
--- NOTE | 2021-06-02 14:54 | BH.MDN_ITS ---
Multi-Disciplinary Note - Note 45-min Individual Time Started:: 11:31 Date: 06/02/21 Purpose of session/treatment goals addressed:: Purpose of session was to aid client in processing her first day back to work and address related stressors. Continued to work on tx goal #2. Other topics included communicating boundaries and upcoming discharge. Eye Contact:: Good Motor Activity:: Appropriate Appearance:: Casual Speech:: Appropriate Mood:: Anxious Affect:: Congruent Thoughts:: Linear, Logical, No evidence of hallucinations/delusions noted Staff Interventions:: Therapist provided encouragement and commended client on areas of progress, gave supportive feedback, and used gentle thought challenging as client processed return to work. Therapist used SD techniques to aid client in identifying areas of progress, skills she can continue to use as she begins transitioning back to regular work schedule, as well as address barriers. Therapist and client reviewed skills for communicating client?s needs and setting boundaries in the workplace. Discussed aftercare plans. Client Response:: Client responded well to session, open to meeting with therapist. Client continues to report a positive mood and improved functioning. Client became tearful as she reflected on her overall progress since beginning the IOP program, noting ?I just get emotional thinking about how far I?ve come?. Able to recognize growth in her ability to identify and challenge distorted thoughts which have contributed to reinforcing anxiety and depressive sx in the past. Shared that this has aided in successfully returning to work yesterday. Client reflected on her first day back at work and stated ?everyone was welcoming and supportive?. Shared using her breaks to rest and felt more confident as the shift progressed. Client identified some difficulties in adjusting to the new software installed during her leave, however indicates asking for help when feeling overwhelmed. Notes this is out of her typical comfort zone as she often feels like a burden or anxious when needing help, but challenged these thoughts and reminded herself of benefits in seeking support. Client expressed that she continues to have some anxiety about interacting with two coworkers she has had conflict with in the past. Expressed successfully speaking with one of them but is nervous to address things with her other coworker out of fear of a negative outcome. Client and therapist spoke at length about healthy communication and various skills for communicating her mental health needs in the work environment. Client noted ultimately it would not be beneficial for her to resurface past arguments as they do not currently have any impact on her and discussed strategies for maintaining a healthy work relationship moving forward. Will transition to full-time after next week and feels some anxiety about this, but overall anxiety is decreased. Discussed plans to continue with outpatient therapy, though has not yet contacted any of the local therapy referrals provided. Reports plans to do so today and will contact therapist upon doing so. Additionally discussed plans to attend the Aftercare program, but first needs to reach out to her PCP for an extension of her intermittent FMLA. Risks/Concerns:: Client denies any thoughts of or suicidal ideations as of 06/02/21. Progress Toward Goals/Plan:: Client continues to demonstrate progress towards tx goals AEB ongoing report of an improved mood and increased ability to function in all settings. Client is progressing to full-time work soon, was able to s uccessfully return on a part-time basis this week, and will be working 3 out 5 days this week and next week. Client's anxiety has reduced significantly, and she is no longer reporting symptoms of depression. However, client does still have ongoing difficulties in managing anxiety in social settings, as well as adjusting to unexpected changes. Continues to struggle with grief but continues to deny outpatient grief counseling resources. Client will continue IOP tx through next week to continue to support stability and manage anxiety as she transitions back to full-time employment. Time Stopped:: 12:16
--- NOTE | 2021-06-03 09:00 | BH.SGPN.GN ---
Behaviors/Verbalizations/Mental Status: []Client alert and oriented, casually dressed and groomed. Eye contact good. Motor activity appropriate. Speech within normal limits. Affect congruent, mood happy and sad. Thoughts linear, logical, no signs of hallucinations or delusions. Reviewed client?s symptom tracker, no risk for suicidal ideation, plan, or intent as of 06/03/21 Client Response/Progress/Benefit: []Client responded well to session, attentive and participating. Client reports feeling happy and sad this morning. Client shared yesterday her mother scared her, but it ended up being a misunderstanding. Client states she has been doing well and coping better with stressors. Client looks forward to a date night this and shared that she has been using more positive self-talk. Appeared to benefit from reflecting on her improved mood and application of coping skills. Will continue IOP tx to reinforce healthy coping skills, establish aftercare, and promote self-confidence. Narrative Note: []
--- NOTE | 2021-06-03 10:15 | BH.SGPN.GN ---
Behaviors/Verbalizations/Mental Status: [] Eye contact is good. Motor activity is appropriate. Appearance is casual. Speech is Appropriate. Mood is anxious. Affect is congruent. Thoughts are linear and logical. No evidence of psychosis. Client Response/Progress/Benefit: [] Pt participated at times during group discission. Participated in small group activity. Attentive during psychoeducation on fixed mindset. Pt along with her peers provided insight on the aspects of a fixed mindset which included; being rigid, absolute thinking, why bother perspective, no confidence that one can succeed, and thoughts that one will never get better. Pt and peers were presented with a task which was meant to seem impossible. Pt identified common fixed mindset statements that she often uses which are no one likes me and I'm never going to be happy. Benefited from education on fixed mindset and how it impacts mental health. Will continue in IOP to maintain gains and transition back to work full-time. Narrative Note: []
--- NOTE | 2021-06-03 11:15 | BH.SGPN.GN ---
Behaviors/Verbalizations/Mental Status: [] Client alert and oriented, casually dressed and groomed. Eye contact good. Motor activity appropriate. Speech within normal limits. Affect congruent. mood anxious. Thoughts linear, logical, no signs of hallucinations or delusions. Client Response/Progress/Benefit: [] Client engaged during activity and discussion AEB providing input and taking notes throughout. Client did well to remain attentive as group worked on identifying characteristics and benefits of adopting a growth mindset. Did well to work with fellow participants in reframing the example fixed thoughts into growth mindset thoughts, providing supportive feedback and suggestions to peers throughout. Client worked in small group to apply skills learned to reframe own personal fixed thoughts. Reframed personal fixed thought of ?I never going to be happy? with growth mindset thought of ?This is hard but things will change and get better. I can eventually find happiness if I keep working on it?. Noted that this would aid in improving confidence, reduce depression, and improve hope. Benefitted from discussing benefits of growth mindset and brainstorming strategies for prompting growth-mindset. Expressed plans to practice challenging her perspective to improve growth mindset. Will continue IOP tx to continue to promote active thought challenging and skill application, maintain stability as she continues to transition back to work, as well as improve healthy coping repertoire. Narrative Note: []
--- NOTE | 2021-06-03 12:41 | PCM.BH.PN_ITS ---
Progress Note Progress Note: History of Present Illness/Interim History: [] Patient is a 26-year-old female who is seen in follow-up at the [facility] behavioral health IOP program. I last saw the patient 2 weeks ago and at that time her Lexapro was increased to 20 mg p.o. daily and minocycline was started for her severe facial acne. Patient feels she is dealing with think the anxiety and stress in her life much better. She is able to leave the house more easily now. She feels her mood is much less depressed and her anxiety is also improved. She rarely has panic attacks lately and when she does they are much milder. Work is going okay but it is stressful because there is a new system that she is learning but she is able to handle it so far. She returned back to work this week. She is doing well in the IOP program and is engaged in consistent and her attendance. She has not required any Ativan since I last saw her. She rescheduled her wedding for next year and she feels this has also lessened her anxiety. She denies any passive thoughts of , suicidal ideation, homicidal ideation, hallucinations or delusions. Current Psychiatric Medications: [] Lexapro 20 mg p.o. daily (dose increased 2 weeks ago) Mental Status Examination: [] The patient is a 26-year-old female who is casually dressed and groomed with good hygiene and appears normal for stated age. Eye contact is good and speech is normal rate and rhythm and fluent with no pressure. Acne appears slightly improved on her face. Mood is approaching euthymia. Affect is mildly constricted. Thought process is goal-directed and organized. Thought content: There is no evidence of passive thoughts of , suicidal ideation, homicidal ideation, hallucinations or delusions. Judgment is intact. Insight is good. Impulsivity is low to moderate. Diagnoses: [] 1. Major depressive disorder, recurrent, severe without psychosis 2. Panic disorder 3. PTSD 4. Facial acne 5. History of recurrent spontaneous abortions x7 6. Primary support and work issues Plan: [] The patient will continue the IOP program at [facility] as the structure, support, education and group therapy will hopefully prevent worsening of the patient's symptoms which might require hospitalization. She felt safe during the interview and if it anytime she does not feel safe she will let us know or go to the emergency room. The risks, options, possible side effects and complications of the medications were discussed again with the patient and she understands and accepts these. No medication changes were made today. The patient will continue on her current medications. She will follow up with her outpatient providers and will get a referral to a utility inspector for her acne.
--- NOTE | 2021-06-05 09:00 | BH.SGPN.GN ---
Behaviors/Verbalizations/Mental Status: []Client alert and oriented, casually dressed and groomed. Eye contact good. Motor activity appropriate. Speech within normal limits. Affect constricted, mood dysthymic. Thoughts linear, logical, no signs of hallucinations or delusions. Reviewed client?s symptom tracker, no risk for suicidal ideation, plan, or intent as of 06/05/21 Client Response/Progress/Benefit: []Client responded well to session, receptive to feedback and encouragement. Client reports feeling both happy and sad this morning. Client shared she called to schedule grief counseling which is positive as client is currently struggling with anticipatory grief. Client shared her fiances grandmother is not doing well, so her finace is struggling. Client stated she wants to take care of him and help him cope, but he has been acting like nothing is bothering him. Discussed boundaries in healthy relationships and client was encouraged to continue working on personal self-care and focusing on what is in her control. Client shared another positive is that I don't hate work like I thought I would which has made the transition back easier. Appeared to benefit from connecting with peers and reviewing healthy boundaries. Will continue IOP tx to further improve mood stability and reinforce healthy coping skills. Narrative Note: []
--- NOTE | 2021-06-05 10:10 | BH.SGPN.GN ---
Behaviors/Verbalizations/Mental Status: [] Eye contact is good. Motor activity is appropriate. Appearance is casual. Speech is Appropriate. Mood is depressed. Affect is flat. Thoughts are linear and logical. No evidence of psychosis. Client Response/Progress/Benefit: [] Pt participated at times during group discussion. Active participant in activity. Attentive during psychoeducation. Pt provided insight and feedback during group discussion on how social supports can be similar to a safety net, the importance of social supports, benefits of social supports, and how strong or poor social supports impact our mental health. Worked well with peers in experiential activity and was able to relate activity to group topic. Benefited from increase awareness of the benefits of social support and the importance of maintain a balanced support system. Will continue in IOP to prevent decompensation, maintain gains, and transition back to full-time work. Narrative Note: []
--- NOTE | 2021-06-05 11:15 | BH.SGPN.GN ---
Behaviors/Verbalizations/Mental Status: []Client alert and oriented, casually dressed and groomed. Eye contact good. Motor activity appropriate. Speech within normal limits. Affect congruent, mood anxious and euthymic. Thoughts linear, logical, no signs of hallucinations or delusions. Client Response/Progress/Benefit: []Client an active participant throughout AEB contributing to discussion and taking notes. Client participated in the group activity highlighting the various barriers to effectively utilizing supports and strategies the group used. Client did well to take direction and advocate for her own needs throughout the activity as well. Participated in discussion of the six types of support (social, spiritual, professional, occupational, and personal) and the group listed examples for all types. Client reports wanting to work on increasing spiritual support as client feels this will help client feel more connected to something greater than herself and aid in providing a greater sense of purpose. Client plans to do this by making more of an effort to find or create a sacred space for herself and practice regular meditation and journaling in this space. Client seemed to benefit from identifying the type of support client wants to improve. Will continue IOP tx to prevent decompensation, continue to promote mood stability, and reduce anxiety as client transitions back to full-time employment. Narrative Note: []
== END 2021-06-06 23:59 ==
LOC: BHIOP 08:29
PROVIDERS: PCP Internal Medicine; Referring Provider Psychiatry & Neurology Psychiatry; Visit Provider Psychiatry & Neurology Psychiatry
DX: F33.2 Major depressive disorder, recurrent severe without psychotic features (principal); F41.0 Panic disorder [episodic paroxysmal anxiety]; F43.10 Post-traumatic stress disorder, unspecified; L70.8 Other acne
CPT/HCPCS: S9480; 90834; 90837; 90853

== ENCOUNTER 2021-06-08 07:47 | Outpatient (RCR) | payer OTHER, MEDICAID, SELFPAY ==
[2021-06-07 00:35] VITALS: BP 114/85; PULSE 82
--- NOTE | 2021-06-10 09:02 | BH.SGPN.GN ---
Behaviors/Verbalizations/Mental Status: []Client alert and oriented, casually dressed and groomed. Eye contact good. Motor activity appropriate. Speech within normal limits. Affect congruent, mood euthymic. Thoughts linear, logical, no signs of hallucinations or delusions. Reviewed client?s symptom tracker, no risk for suicidal ideation, plan, or intent as of 06/10/21 Client Response/Progress/Benefit: []Client responded well to session, attentive and receptive to support from peers and bridge maintainer. Client reports feeling ?content this morning and expressed this is due to continuing to take steps in making self-care an active part of her routine. Discussed struggling some with visiting her fiances grandmother who is frail and struggling with her health. Client noted that she was able to use several skills such as deep breathing, walking away, and reaching out to supports. Able to see this as a positive in promoting improved mood stability. Reflected on use of these skills as she transitions back to full-time employment as well. Will discharge from [facility] tx tomorrow and is encouraged to continue in outpatient counseling to prevent decompensation, continue to improve mood stability, and further manage anxiety as client transitions back to full-time employment. Narrative Note: []
--- NOTE | 2021-06-10 10:15 | BH.SGPN.GN ---
Behaviors/Verbalizations/Mental Status: [] Eye contact is good. Motor activity is appropriate. Appearance is casual. Speech is Appropriate. Mood is depressed. Affect is flat. Thoughts are linear and logical. No evidence of psychosis. Client Response/Progress/Benefit: [] Pt was an active participant in group discussion and activity. Attentive during psychoeducation. Pt provided feedback and insight into reasons that people take action to improve mental wellness which included; benefits outweigh the risks, distress so long that one has to do something, hopeless and need options, and external motivations. Group members were able to identify what exactly taking action meant to them which included; starting and showing up to IOP and mental health treatment, taking medications, utilizing skills, and making an effort. Pt identified the obstacles that are holding her back from taking action which were grief, sadness, and being emotionally overwhelmed. Benefited from increase awareness of the importance of taking action as well as obstacles that impact her from taking actions. Will continue in IOP to maintain gains and transition back to full-time work. Narrative Note: []
--- NOTE | 2021-06-10 11:15 | BH.SGPN.GN ---
Behaviors/Verbalizations/Mental Status: []Client alert and oriented, casually dressed. Eye contact good. Motor activity appropriate. Speech within normal limits. Affect constricted, mood anxious. Thoughts linear, logical, no signs of hallucinations or delusions. Client Response/Progress/Benefit: []Client responded well to session, taking notes and participating in worksheet discussion. Client set a goal to gain control over her grief. Client shared ?I don?t think grief is something that ever really goes away? but client knows she can work on processing it more. Client wants to be able to work on this by going to grief counseling on a consistent basis. Client shared scheduling self-care such as art, journaling, and talking with her mother will help client accomplish this goal. Appeared to benefit from identifying a small goal to benefit mental health. Will continue IOP tx and discharge tomorrow. Client can benefit from one more IOP day to reinforce healthy coping skills. Narrative Note: []
--- NOTE | 2021-06-11 09:00 | BH.SGPN.GN ---
Behaviors/Verbalizations/Mental Status: []Eye contact is good. Motor activity is appropriate. Appearance is casual. Speech is Appropriate. Mood is anxious and happy. Affect is constricted. Thoughts are linear and logical. No evidence of psychosis. Reviewed daily check in sheet and pt denies any suicidal ideations or thoughts of . Client Response/Progress/Benefit: []Client responded well to session, attentive. Client's last day of IOP tx and client shared she is content and a little sad. Client shared that IOP has helped client in many ways, especially with communicating her needs. Client stated she is much better at managing her emotions now and catching negative thoughts. Client also gave herself credit for her consistency with using coping skills. Client's biggest stressor right now is her fiance's family. Client stated she will need to continue setting boundaries with herself and others. Appeared to benefit from reflecting on personal growth. Will discharge from IOP as client has accomplished her treatment goals and no longer meets criteria for IOP level of care. Narrative Note: []
--- NOTE | 2021-06-11 10:00 | BH.SGPN.GN ---
Behaviors/Verbalizations/Mental Status: [] Eye contact is good. Motor activity is appropriate. Appearance is casual. Speech is Appropriate. Mood is anxious. Affect is congruent. Thoughts are linear and logical. No evidence of psychosis. Client Response/Progress/Benefit: [] Pt was an active participant in group discussion. Attentive during psychoeducation on the impact of anxiety, benefits of anxiety, and the different anxiety disorders. Pt asked questions and was engaged during discussion on types of anxiety disorders (OCD, PTSD, Panic D/O, Agoraphobia, MARVA, Acute Stress Disorder, and Phobias). Group worked together to identify a list of common signs of anxiety which included; feeling tense, shakiness, sweating, tight chest, upset stomach, feeling flush, SOB, increased heart rate, headache, numbness, etc). Group was primarily psychoeducational in nature and pt was attentive, engaged, and provided insight at times. Benefited from increased awareness of different types of anxiety disorders as well as benefits and importance of identifying physiological signs of anxiety. This is pt's last day in [facility] and she will be discharged today. Narrative Note: []
--- NOTE | 2021-06-11 11:05 | BH.SGPN.GN ---
Behaviors/Verbalizations/Mental Status: []Client alert and oriented, casually dressed and groomed. Eye contact good. Motor activity appropriate. Speech within normal limits. Affect congruent, mood euthymic. Thoughts linear, logical, no signs of hallucinations or delusions. Client Response/Progress/Benefit: []Client was an active participant in group discussion and listened attentively to peers. Reviewed safety behaviors she engages in that reinforce anxiety. Attentive during psychoeducation on mindfulness coping skills and their impact on mental health wellness. Worked with group to identify healthy coping strategies to manage anxious symptoms. Client stated she is willing to practice breathing and progressive muscle relaxation to help manage anxiety. Appeared to benefit from learning healthy skills to help manage anxiety. Pt has made significant treatment progress and will discharge from [facility] today.
--- NOTE | 2021-06-12 08:37 | BH.AFTERPLAN ---
Aftercare Plan - Demographics Treatment End Date:: 06/12/21 Psychiatrist:: Malorie Mclain Psychiatrist Office #:: [phone] [facility] Therapist:: Zara Avilez Therapist Phone #:: [phone] - Plan Details Progress/Aftercare Plan Details:: You have made progress in improving your overall ability to make your own mental health needs a priority for you. This started with you taking the steps to seek out treatment in the first place. You have taken steps to challenge your initial worries about therapy and open yourself up to the idea that it can help. I truly think that this made a huge difference in your progress. It?s not easy to trust others with such personal things and I give you a lot of credit for being willing to do so. Taking time to seek treatment has allowed you the opportunity to reflect on what you truly need and begin advocating for those things at work as well as with your supports. This has included setting boundaries, removing toxic people from your life, and working on communicating more assertively. Keep this up! You have been making strides in decreasing the negative self-talk and challenging the distorted thoughts that impact your mood and your mental health. Challenging those distortions and negative self-talk messages will only continue to help improve your ability to love yourself and treat yourself kinder as a person. Sending yourself compassionate messages in times of increased stress, frustration, and anxiety will continue to help improve your resilience and ability to be cope in difficult times. You have taken steps to improve your overall self-reflection and really taken time to stop and challenge your perspective. This is a tough skill and you have been putting forth effort to keep trying even when the thoughts are difficult to combat. You have shown progress in your ability to recognize potential warning signs/triggers that your ?stress jar? is getting full or that you are feeling overwhelmed/burned out and are more proactively doing things about it to help yourself, look at all the steps you?ve taken to improve your work environment before going back! . There will be setbacks and a setback does NOT mean you are starting over. Think of how much progress you?ve made and the important examples you are setting for those around you. Others are seeing you make your mental health needs a priority which can encourage those around you to take the same initiative themselves. You have made so much progress in practicing self-care, including self-care related to emotional release. You have taken steps to allow yourself to feel some of the more complex and difficult emotions that can be tied to the grieving process. Please, continue to work on this and consider reaching out for additional help and support in this area. Strategies for Success:: Opposite Action!!! ? do what will help you, even when your brain is saying ?this is too hard? or ?I can?t do it?, even when it feels uncomfortable, even when you are tempted to give up or fall back into unhealthy coping behaviors. Doing the hard or the anxious thing is often the healthier option. Even though my homework has stopped, keep giving yourself mental health homework! This is the best way to continue to grow and hold yourself accountable. Challenge negative thought patterns by trying to look at things from the other perspective. Remember ?thoughts are thoughts, not facts?. Ask yourself ?How else can I think about this?? ?Do I have to give this thought value?? ?Is there evidence against this thought??. Remember COMMUNICATE, COMMUNICATE, COMMUNICATE! Your supports won?t know how to help if you don?t let them be a part of the conversation. Keep challenging yourself to find social activities that YOU enjoy and make YOU feel refreshed. Who and what refills your cup? Strive to reach out to friends and supports! There are people who care and want to see you doing well! You deserve more for yourself than to surround yourself with toxic supports. I know you know this! You are ALLOWED to set BOUNDARIES. Continue to make time for yourself! Self-care is castillo to maintaining progress and developing a healthier relationship with yourself! This includes sometimes doing those hard things (such as reaching out or challenging yourself to say ?no? to others at times). Keep going to therapy! - Appointments Appointments/Referrals to Other Services:: Client has been encouraged to follow-up with continued individual outpatient therapy on a weekly basis as well as grief counseling. Client has been given resources for multiple counseling agencies for both individual and grief counseling; however, client has not followed-up with any of these agencies as of this time. - Medications Home Medications: Home Medications lorazepam 0.5 mg PO TID #10 tab 04/23/21 escitalopram oxalate [Lexapro] 20 mg PO DAILY 30 Days #30 tab 05/20/21 minocycline 100 mg PO DAILY 30 Days #30 cap 05/20/21
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
--- NOTE | 2021-06-12 08:42 | BH.PSA ---
Suicide Assessment Treatment Plan Recommendations
--- NOTE | 2021-06-12 09:51 | BH.MDN ---
Multi-Disciplinary Note - Note 30-min Individual Date: 06/12/21 Purpose of session/treatment goals addressed:: The purpose of this session was to review client's progress and strategies that will continue to promote mood stability and maintain gains made in IOP. Another goal was to discuss discharge recommendations and process any current stressors. Eye Contact:: Good Motor Activity:: Appropriate Appearance:: Casual Affect:: Congruent Thoughts:: Linear, Logical, No evidence of hallucinations/delusions noted Staff Interventions:: Therapist used open-ended questions to explore client's thoughts on personal progress. Therapist also provided emotional support and helped client process current stressors. Therapist reviewed supports and coping skills with client to promote gains and prevent setbacks following IOP discharge. Therapist discussed aftercare plan with client and used strengths-perspective to empower client on the goals client has accomplished. Therapist discussed the benefits of ongoing counseling for maintenance and encouraged use of daily coping skills. Therapist provided an aftercare plan and quote collage for closure. Risks/Concerns:: Client denies any suicidal ideations, plan, or intent as of 06/12/21. Future oriented and motivated.
--- NOTE | 2021-06-12 13:11 | BH.COMM ---
Communication Note - Communication with Client Communication Note: Client met with this therapist to discuss progress both observed and as documented by changes in DSM-5 cross-cutting analysis scores from date of admission to discharge date. Therapist and client reviewed strategies that will continue to promote mood stability and maintain gains made in IOP. Client identified continued communication with her supports, boundary setting, journaling, and setting aside time for herself as important skills to continue following IOP discharge. Additionally discussed discharge recommendations and continued to encourage client to establish with outpatient providers. Client denied wanting to do so at this time and reports plans to find a counselor after moving to [place] in a few weeks. Client did however report reaching out to Hospice to begin grief counseling.
== END 2021-06-11 13:24 | disposition home or self-care (01) ==
LOC: BHIOP 07:47
PROVIDERS: PCP Internal Medicine; Referring Provider Psychiatry & Neurology Psychiatry; Visit Provider Psychiatry & Neurology Psychiatry
DX: F33.2 Major depressive disorder, recurrent severe without psychotic features (principal); F43.10 Post-traumatic stress disorder, unspecified; F41.0 Panic disorder [episodic paroxysmal anxiety]
CPT/HCPCS: S9480; 90853

== ENCOUNTER 2021-07-04 12:44 | Emergency (ER) | payer OTHER, MEDICAID, SELFPAY ==
[2021-07-04 12:44] VITALS: BP 136/87; PULSE 99; RESP 18; TEMP 36.7; O2SAT 95; BMI 39.1
--- NOTE | 2021-07-04 15:21 | EX.ED.DYSGE1 ---
HPI History of Present Illness Chief Complaint: Allergic Reaction Informant: patient Onset/Context/Timing Onset: Today Context: Sudden Onset Timing: Continuous Quality: Stinging Location: Left thigh Worsened by: Nothing Relieved by: Benadryl, Tylenol Narrative Narrative: Patient presents with possible allergic reaction that occurred today. Patient states she has a allergy to bee stings. Patient states she was mowing grass today and she was stung by some insects that came out of the ground. Patient states she was stung on her left thigh. Patient noted some redness around the stinger sites. Patient denies any hives. Patient denies any difficulty breathing or difficulty swallowing. Patient states she took Benadryl and Tylenol at home with some improvement. [facility] Medical History Major depressive disorder, recurrent severe without psychotic features Panic disorder PTSD (post-traumatic stress disorder) Home Medications lorazepam 0.5 mg PO TID #10 tab 04/23/21 [Rx Last Taken Unknown] escitalopram oxalate [Lexapro] 20 mg PO DAILY 30 Days #30 tab 05/20/21 [Rx Last Taken Unknown] minocycline 100 mg PO DAILY 30 Days #30 cap 05/20/21 [Rx Last Taken Unknown] Allergy/AdvReac Type Severity Reaction Status Date / Time adhesive tape Allergy Rash Verified 04/23/21 13:27 latex Allergy Hives Verified 04/23/21 13:27 tomato Allergy Swelling Verified 04/23/21 13:27 venom-honey bee Allergy Hives Verified 04/23/21 13:27 [bee venom (honey bee)] no surgical history Social History Smoking Status: Never smoker ROS ROS ED Constitutional Constitutional ED: Denies chills or fever(s) Eyes Eyes: Denies blurry vision or change in vision ENT ENT ED: Denies rhinorrhea or sore throat Cardiovascular Cardiovascular: Denies chest pain or palpitations Respiratory/Chest Respiratory/Chest: Denies cough or dyspnea Gastrointestinal Gastrointestinal: Denies nausea or vomiting Genitourinary Genitourinary ED: Denies dysuria or hematuria Musculoskeletal Musculoskeletal: Denies back pain or neck pain Integumentary Reports rash; Denies abscess Neurologic Neurologic: Denies headache(s) or weakness Allergic/Immunologic Allergic/Immunologic ED: Denies mouth swelling or urticaria EXAM Physical Exam Const Vital Signs: 07/04/21 12:44 07/04/21 15:37 Temperature 98.1 F Temperature Source Oral Pulse Rate 99 71 Respiratory Rate 18 18 Blood Pressure 136/87 H 120/72 Blood Pressure Mean 103 Pulse Ox 95 99 Oxygen Delivery Method Room Air Positive well nourished, well developed and obese General Appearance ED: well developed Nutritional Appearance: obese HEENT Reports moist mucous membranes Neck supple and no JVD Resp normal respiratory effort and clear to auscultation bilaterally Cardio regular rate and regular rhythm GI non-tender Palpation: soft Extremity Extremity Narrative: There was some mild erythema at the sting sites on her left thigh. There is no urticaria noted. There is no systemic rash noted. There is some mild tenderness at the sting sites. There is no ecchymosis. There is full range of motion of the lower extremities bilaterally. Neuro oriented x3, CN's II-XII intact bilaterally and no sensory deficits noted Sensorium / Orientation: alert Motor Exam: strength 5/5 throughout Psych mental status grossly normal MDM MDM MDM Narrative Medical decision making narrative: Patient was advised that this is a local reaction to the insect sting. Patient was advised that bees, wasps, hornets, and yellow jackets all have different venom and do not cross-react from allergic reactions. Patient was instructed to continue Benadryl and Tylenol as needed. Patient was instructed to use ice to the area. Patient was instructed to follow-up with her primary care physician in 5 to 7 days. Patient understood and was agreeable with the plan. All questions were answered. Discharge Plan Triage Chief Complaint: Allergic Reaction ED Provider: Robbin Holman Dx/Rx/DC Orders Clinical Impression: Local reaction to hymenoptera sting Instructions: ED Insect Sting, Local Reaction Prescriptions: No Action lorazepam [lorazepam] 0.5 MG tablet 0.5 mg PO TID Qty: 10 RF: 0 escitalopram oxalate [Lexapro] 20 mg tablet 20 mg PO DAILY 30 Days Qty: 30 RF: 1 minocycline 100 mg capsule 100 mg PO DAILY 30 Days Qty: 30 RF: 2 Stand Alone Forms: ED Work / School Excuse Primary Care Provider: Alexandra Stoddard Referrals: Alexandra Stoddard MD [Primary Care Provider] - 5-7 Days Disposition Disposition: Home, Self Care Discharge Date/Time: 07/04/21 15:39
[2021-07-04 15:37] VITALS: BP 120/72; PULSE 71; RESP 18; O2SAT 99
== END 2021-07-04 15:39 | disposition home or self-care (01) ==
LOC: ED 15:34
PROVIDERS: Emergency Provider Emergency Medicine; PCP Internal Medicine
DX: T78.40XA Allergy, unspecified, initial encounter (principal); F43.10 Post-traumatic stress disorder, unspecified; F33.2 Major depressive disorder, recurrent severe without psychotic features
CPT/HCPCS: 99282

== ENCOUNTER 2021-07-18 01:44 | Emergency (ER) | payer OTHER, MEDICAID, SELFPAY ==
[2021-07-18 01:45] VITALS: BP 141/94; PULSE 73; RESP 16; TEMP 36.8; O2SAT 97; BMI 40.3
--- NOTE | 2021-07-18 02:17 | EX.ED.DYSGE1 ---
HPI History of Present Illness Chief Complaint: Allergic Reaction Narrative Narrative: Patient presenting with concern for allergic reaction. She states she has pruritic rash on her left arm, right leg, chest wall. She states that the only thing new that she is taken is some sort of antacid which is at work. She does not know what this medication is. She states she usually takes Tums but she was at work and took a medication that was there. Since that time she has had a rash. She denies throat tightness, difficulty swallowing or breathing, chest pain, shortness of breath, abdominal pain or nausea and vomiting. Patient did take cetirizine before she came. This does not seem to help. She has had no insect stings that she knows of. She denies any new soaps, dyes, linens, detergents, etc. [facility] Medical History Major depressive disorder, recurrent severe without psychotic features Panic disorder PTSD (post-traumatic stress disorder) Home Medications lorazepam 0.5 mg PO TID #10 tab 04/23/21 [Rx Last Taken Unknown] escitalopram oxalate [Lexapro] 20 mg PO DAILY 30 Days #30 tab 05/20/21 [Rx Last Taken Unknown] minocycline 100 mg PO DAILY 30 Days #30 cap 05/20/21 [Rx Last Taken Unknown] diphenhydramine HCl [Benadryl Allergy] 25 mg PO TID PRN #20 tab 07/18/21 [Rx Last Taken Unknown] prednisone 50 mg PO DAILY 5 Days #25 tab 07/18/21 [Rx Last Taken Unknown] Allergy/AdvReac Type Severity Reaction Status Date / Time adhesive tape Allergy Rash Verified 07/18/21 01:47 latex Allergy Hives Verified 07/18/21 01:47 tomato Allergy Swelling Verified 07/18/21 01:47 venom-honey bee Allergy Hives Verified 07/18/21 01:47 [bee venom (honey bee)] Social History Smoking Status: Current some day smoker tobacco type: cigarettes ROS ROS ED Constitutional Constitutional ED: Denies chills or fever(s) Eyes Eyes: Denies blurry vision or diplopia ENT ENT ED: Denies rhinorrhea or sore throat Cardiovascular Cardiovascular: Denies chest pain or palpitations Respiratory/Chest Respiratory/Chest: Denies cough, dyspnea or sputum Gastrointestinal Gastrointestinal: Denies abdominal pain, nausea or vomiting Genitourinary Genitourinary ED: Denies dysuria or hematuria Musculoskeletal Musculoskeletal: Denies arthralgias or myalgias Integumentary Reports rash Neurologic Neurologic: Denies headache(s) or paresthesias EXAM Physical Exam Const Vital Signs: 07/18/21 01:45 Temperature 98.2 F Temperature Source Oral Pulse Rate 73 Respiratory Rate 16 Blood Pressure 141/94 H Blood Pressure Mean 109 Pulse Ox 97 Oxygen Delivery Method Room Air Positive well nourished General Appearance ED: NAD HEENT trauma and tenderness Eyes PERRL and EOMs intact bilaterally Neck no lymphadenopathy and supple Neck Narrative: No stridor oropharynx patent. No sublingual swelling. Tongue is not swollen. Resp normal respiratory effort and clear to auscultation bilaterally Cardio regular rate and regular rhythm GI normal to inspection, nondistended, normoactive bowel sounds Extremity normal to inspection Neuro oriented x3 Sensorium / Orientation: alert Skin Skin Narrative: Mild erythematous rash on right thigh, left arm, chest wall. These are not raised they do not appear to be hive-like. They do not feel tender to palpation. There is no crepitance. MDM MDM MDM Narrative Medical decision making narrative: Patient presenting with concern for allergic reaction. Is not clear what she took today. It is unclear if this would even caused sporadic allergic rash on different extremities and the chest wall. She does not have signs of anaphylaxis. Patient states her only concern is the itching. Patient will be given a dose of Benadryl here as well as prednisone. She is given a prescription for Benadryl and prednisone to take as needed. Does not appear to be a poison sofia dermatitis which would require extended taper. Patient states that she is not or diabetic. Patient will be discharged stable condition. Impression: 1. Allergic reaction Discharge Plan Triage Chief Complaint: Allergic Reaction ED Provider: Surya Ruelas Dx/Rx/DC Orders Instructions: ED Drug Reaction, Other Prescriptions: New diphenhydramine HCl [Benadryl Allergy] 25 mg tablet 25 mg PO TID PRN (Reason: allergic reaction) Qty: 20 RF: 0 prednisone 10 mg tablet 50 mg PO DAILY 5 Days Qty: 25 RF: 0 No Action lorazepam [lorazepam] 0.5 MG tablet 0.5 mg PO TID Qty: 10 RF: 0 escitalopram oxalate [Lexapro] 20 mg tablet 20 mg PO DAILY 30 Days Qty: 30 RF: 1 minocycline 100 mg capsule 100 mg PO DAILY 30 Days Qty: 30 RF: 2 Primary Care Provider: Alexandra Stoddard Referrals: Alexandra Stoddard MD [Primary Care Provider] - Disposition Disposition: Home, Self Care
[2021-07-18] MEDS: DiphenhydrAMINE 25 MG Capsule PO (02:26)
[2021-07-18] MEDS: predniSONE 20 MG Tablet 60 MG PO (02:26)
== END 2021-07-18 02:57 | disposition home or self-care (01) ==
LOC: ED 02:43
PROVIDERS: Emergency Provider Student in an Organized Health Care Education/Training Program; PCP Internal Medicine
DX: T78.40XA Allergy, unspecified, initial encounter (principal); F17.210 Nicotine dependence, cigarettes, uncomplicated; F33.2 Major depressive disorder, recurrent severe without psychotic features; F43.10 Post-traumatic stress disorder, unspecified; Z79.52 Long term (current) use of systemic steroids
CPT/HCPCS: 99283

== ENCOUNTER 2021-07-28 01:36 | Emergency (ER) | payer OTHER, MEDICAID, SELFPAY ==
[2021-07-28 01:41] VITALS: BP 144/97; PULSE 96; RESP 18; TEMP 36.9; O2SAT 98; BMI 39.1
--- NOTE | 2021-07-28 01:52 | EDS_ITS ---
HPI History of Present Illness Chief Complaint: Rash Informant: patient Onset/Context/Timing Onset: Weeks Context: Gradual Onset Timing: Continuous Current Severity: Mild Maximum Severity: Mild Narrative Narrative: 26-year-old female history of depression. States on July 04 she was stung by bees had an allergic reaction. And then was seen here on for similar rash that she said itches a lot. But she was not stung at that time. She was placed on prednisone and just that it really has not gotten better. She denies other symptoms such as fever or chills or nausea or vomiting or diarrhea. Prior similar symptoms: Yes Recent Illness/Hospitalization: No [facility] Medical History Major depressive disorder, recurrent severe without psychotic features Panic disorder PTSD (post-traumatic stress disorder) Home Medications lorazepam 0.5 mg PO TID #10 tab 04/23/21 [Rx Last Taken Unknown] escitalopram oxalate [Lexapro] 20 mg PO DAILY 30 Days #30 tab 05/20/21 [Rx Last Taken Unknown] minocycline 100 mg PO DAILY 30 Days #30 cap 05/20/21 [Rx Last Taken Unknown] diphenhydramine HCl [Benadryl Allergy] 25 mg PO TID PRN #20 tab 07/18/21 [Rx Last Taken Unknown] prednisone 50 mg PO DAILY 5 Days #25 tab 07/18/21 [Rx Last Taken Unknown] Allergy/AdvReac Type Severity Reaction Status Date / Time adhesive tape Allergy Rash Verified 07/28/21 01:38 latex Allergy Hives Verified 07/28/21 01:38 tomato Allergy Swelling Verified 07/28/21 01:38 venom-honey bee Allergy Hives Verified 07/28/21 01:38 [bee venom (honey bee)] Surgical History no surgical history Social History Smoking Status: Former smoker ROS ROS ED ROS Narrative Rash that itches. Review of Systems ROS Unobtainable: Denies due to encephalopathy Constitutional Constitutional ED: Denies chills or fever(s) Eyes Eyes: Denies change in vision ENT ENT ED: Denies ear pain or sore throat Cardiovascular Cardiovascular: Denies chest pain or palpitations Respiratory/Chest Respiratory/Chest: Denies cough or dyspnea Gastrointestinal Gastrointestinal: Denies abdominal pain, constipation, diarrhea, nausea or vomiting Genitourinary Genitourinary ED: Denies dysuria or hematuria Musculoskeletal Musculoskeletal: Denies myalgias Integumentary Reports rash Neurologic Neurologic: Denies headache(s) Psychiatric Psychiatric: Denies depression Endocrine Endocrinology: Denies polyuria Allergic/Immunologic Allergic/Immunologic ED: Denies urticaria EXAM Physical Exam Narrative Exam Narrative: Provider female no acute distress. Vital signs stable afebrile. Lungs are clear. Heart regular rhythm. Abdomen soft nontender. She has a rash primarily on her thighs and left flank is consistent with allergic reaction. It is red and raised. Its not hot. Is not cellulitic. She also has diffuse acne primarily in her upper extremities and face. There is no petechiae or purpura. No sloughing of skin. It does lacho to the touch.This is consistent with allergic reaction. The history and timing of it is a little off. Const Vital Signs: 07/28/21 01:41 Temperature 98.4 F Temperature Source Oral Pulse Rate 96 Respiratory Rate 18 Blood Pressure 144/97 H Blood Pressure Mean 112 Pulse Ox 98 Oxygen Delivery Method Room Air Positive well nourished and well developed; Negative for cachectic, contractures or unkempt General Appearance ED: well developed and NAD; Negative for unkempt, cachectic, contractures, cyanotic, diaphoretic or pallor Nutritional Appearance: Negative for cachectic HEENT Reports moist mucous membranes Negative for trauma or tenderness Eyes PERRL and EOMs intact bilaterally General Eye ED: Negative for pale conjunctiva Neck no lymphadenopathy, supple and no JVD General: Negative for tenderness Chest Wall inspection of chest normal and palpation of chest normal Resp normal respiratory effort and clear to auscultation bilaterally Auscultation: Negative for rales, rhonchi or diminished lung sounds Cardio regular rate, regular rhythm, S1 normal heart sound, S2 normal heart sound and no murmurs GI normal to inspection, nondistended, normoactive bowel sounds, non-tender, non- distended and no masses Auscultation: normoactive bowel sounds Palpation: soft; Negative for tender, guarding or rebound tenderness present Back/Spine no CVA tenderness General Back: Negative for CVA tenderness Extremity normal to inspection General Extremety ED: Negative for tenderness Neuro oriented x3 Sensorium / Orientation: alert Motor Exam: strength 5/5 throughout Psych mental status grossly normal Appearance: Negative for unkempt Skin No no rashes or lesions noted and no wounds Skin Narrative: Rash primarily on the lower extremities and left flank consistent with allergic reaction. Is not hot. Is nontender. There is no sloughing of skin. She also has acne on the upper extremities and face. General Skin Exam: Negative for jaundice or pallor Rashes: rashes noted MDM MDM MDM Narrative Medical decision making narrative: Patient is already on prednisone she needs to finish the prescription. She is already taking Benadryl. If she is not improving she will be referred to dermatology. Discharge Plan Triage Chief Complaint: Rash ED Provider: Robel Gallo Dx/Rx/DC Orders Clinical Impression: Allergic reaction Instructions: ED ADVERSE DRUG REACTION Allergic Prescriptions: No Action lorazepam [lorazepam] 0.5 MG tablet 0.5 mg PO TID Qty: 10 RF: 0 escitalopram oxalate [Lexapro] 20 mg tablet 20 mg PO DAILY 30 Days Qty: 30 RF: 1 minocycline 100 mg capsule 100 mg PO DAILY 30 Days Qty: 30 RF: 2 diphenhydramine HCl [Benadryl Allergy] 25 mg tablet 25 mg PO TID PRN (Reason: allergic reaction) Qty: 20 RF: 0 prednisone 10 mg tablet 50 mg PO DAILY 5 Days Qty: 25 RF: 0 Primary Care Provider: Alexandra Stoddard Referrals: Abbi Somers MD [NON-STAFF] - 1 Week if not improving Alexandra Stoddard MD [Primary Care Provider] - As Needed Activity Restrictions/Additional Instructions: Continue and finish her prednisone. Take it daily. Follow-up with the manager completions Dr. Abbi Somers if your rash is not improving. Disposition Disposition: Home, Self Care
== END 2021-07-28 02:06 | disposition home or self-care (01) ==
LOC: ED 02:01
PROVIDERS: Emergency Provider Emergency Medicine; PCP Internal Medicine
DX: T78.40XA Allergy, unspecified, initial encounter (principal); R21 Rash and other nonspecific skin eruption; F33.2 Major depressive disorder, recurrent severe without psychotic features; F43.10 Post-traumatic stress disorder, unspecified; Z79.52 Long term (current) use of systemic steroids; Z87.891 Personal history of nicotine dependence
CPT/HCPCS: 99282

== ENCOUNTER → 2022-07-15 | Outpatient (CLI) | payer MEDICAID, SELFPAY ==
[2022-07-15 17:58] LABS: hCG Titer Quant., Serum < 1 mIU/mL (1-3)
== END | disposition home or self-care (01) ==
PROVIDERS: PCP Internal Medicine; Visit Provider Obstetrics & Gynecology
DX: N91.1 Secondary amenorrhea (principal)
CPT/HCPCS: 36415; 84702

== ENCOUNTER → 2022-07-21 | Outpatient (CLI) | payer MEDICAID, SELFPAY ==
[2022-07-21 17:37] LABS: Absolute Lymphocyte Count 2.09 X10^3/uL (0.83-4.51); Absolute Neutrophil Count 7.3 X10^3/uL (2.0-7.7); Basophil# 0.06 X10^3/uL; Basophil% 0.6 % (0-1); Eosinophil# 0.53 X10^3/uL; Hematocrit 42.8 % (37-47); Hemoglobin 14.7 g/dL (12.0-15.0); Lymphocyte # 2.09 X10^3/ul (0.83-4.51); Lymphocyte % 19.6 % (19-41); Mean Corp Hgb Conc 34.3 g/dL (32-36); Mean Corpuscular Hgb 28.2 pg (27.0-32.0); Mean Platelet Vol. 10.4 fl (6.2-12.0); Monocyte# 0.63 X10^3/uL; Monocyte% 5.9 % (0-10); NRBC Flagged by Analyzer 0 % (0-5); Neutrophil # 7.33 X10^3/uL (2.7-7.7); Neutrophil % 68.5 % (47-70); Platelet Count 303 K/mm3 (150-450); RBC Distribution Width CV 12.8 % (11.6-14.6); RBC Distribution Width SD 38.1 fl (35.1-43.9); Red Blood Count 5.22 M/mm3 (4.2-5.4); White Blood Count 10.7 K/mm3 (4.4-11.0)
[2022-07-21 18:11] LABS: Estradiol 199.8 pg/mL; Follicle Stimulating Hormone 0.8 mIU/mL; Luteinizing Hormone 1.9 mIU/mL; Prolactin 16.3 ng/mL; Thyroid Stim Hormone (TSH) 1.36 uIU/mL (0.358-3.74)
[2022-07-27 13:30] LABS: Testosterone Free 1.6 pg/mL (0.0-4.2)
== END | disposition home or self-care (01) ==
LOC: WOBLAB 17:15
PROVIDERS: PCP Internal Medicine; Visit Provider Obstetrics & Gynecology
DX: N91.2 Amenorrhea, unspecified (principal)
CPT/HCPCS: 36415; 82670; 83001; 83002; 84146; 84402; 84439; 84443; 85025

== ENCOUNTER → 2023-01-20 | Outpatient (CLI) | payer MEDICAID, SELFPAY ==
[2023-01-27 20:26] LABS: HPV Reflexed? NOT INDICATED
== END | disposition home or self-care (01) ==
LOC: LABSPEC 01-21 09:07
PROVIDERS: PCP Internal Medicine; Visit Provider Obstetrics & Gynecology
DX: Z12.4 Encounter for screening for malignant neoplasm of cervix (principal)
CPT/HCPCS: 88175; G0145

== ENCOUNTER → 2023-07-19 | Outpatient (CLI) | payer MEDICAID, SELFPAY ==
[2023-07-19 15:28] LABS: Absolute Lymphocyte Count 1.59 X10^3/uL (0.83-4.51); Absolute Neutrophil Count 6.1 X10^3/uL (2.0-7.7); Basophil# 0.04 X10^3/uL; Basophil% 0.5 % (0-1); Eosinophil# 0.29 X10^3/uL; Eosinophils% 3.3 % (0-5); Hematocrit 42.5 % (37-47); Hemoglobin 13.8 g/dL (12.0-15.0); Lymphocyte # 1.59 X10^3/ul (0.83-4.51); Lymphocyte % 18.2 % (19-41); Mean Corp Hgb Conc 32.5 g/dL (32-36); Mean Corpuscular Hgb 25.7 pg (27.0-32.0); Mean Corpuscular Volume 79.1 fL (81-99); Monocyte# 0.64 X10^3/uL; Monocyte% 7.3 % (0-10); NRBC Flagged by Analyzer 0 % (0-5); Neutrophil # 6.13 X10^3/uL (2.7-7.7); Neutrophil % 70.4 % (47-70); Platelet Count 316 K/mm3 (150-450); RBC Distribution Width CV 14.2 % (11.6-14.6); RBC Distribution Width SD 40.8 fl (35.1-43.9); Red Blood Count 5.37 M/mm3 (4.2-5.4); White Blood Count 8.7 K/mm3 (4.4-11.0)
[2023-07-19 17:00] LABS: HIV - WCH Non-Reactive (Nonreactive); Hepatitis B Surface Antigen Non-Reactive (Nonreactive); Hepatitis C Antibody Non-Reactive (Nonreactive); Rubella IgG Reactive (Nonreactive); Syphilis Antibodies Non-reactive
[2023-07-21 05:07] LABS: V-Zoster IgG (Immunity) 2232 index (Immune >165)
== END | disposition home or self-care (01) ==
LOC: WOBLAB 15:00
PROVIDERS: PCP Internal Medicine; Visit Provider Obstetrics & Gynecology
DX: Z34.81 Encounter for supervision of other normal pregnancy, first trimester (principal)
CPT/HCPCS: 36415; 85025; 86703; 86762; 86780; 86787; 86803; 87086; 87088; 87340